=== PATIENT | male | born 1975 | race Caucasian/White ===

== ENCOUNTER → 2024-08-07 08:05 | Outpatient (REF) | payer OTHER, SELFPAY | LOC: HWRCS 08:05 | PROVIDERS: ATTENDING PHYSICIAN Internal Medicine Cardiovascular Disease; FAMILY PHYSICIAN Family Medicine | DX: I25.10 Atherosclerotic heart disease of native coronary artery without angina pectoris (principal) | CPT/HCPCS: 93306 ==

== ENCOUNTER → 2024-08-14 08:11 | Outpatient (REF) | payer OTHER, SELFPAY | LOC: RCS 08:11 | PROVIDERS: ATTENDING PHYSICIAN Internal Medicine Cardiovascular Disease; FAMILY PHYSICIAN Family Medicine | DX: I25.10 Atherosclerotic heart disease of native coronary artery without angina pectoris (principal) | CPT/HCPCS: 78452; 93017; A9500 ==

== ENCOUNTER 2024-08-17 12:17 | Day surgery (SDC) | payer OTHER, SELFPAY ==
[2024-08-17] VITALS (13 sets, daily range): BP systolic 107–167; BP diastolic 54–93; BMI 29.6
[2024-08-17] MEDS: NSS 305 ML IV (12:56)
[2024-08-17 14:51] LABS: ACT-LR - POC 308 Seconds (116-155)
[2024-08-17] MEDS: NSS 1000 IV (15:17)
--- NOTE | 2024-08-17 18:37 | ITS.CL.PN ---
Addendum entered and electronically signed by Sanchez Mayo MD 08/17/24 18:53:
Copy To: Dr. Andrzej Medina MD (sludge control attendant); Dr. Talib Alcaraz MD (surgeon); Dr. Saul Berg DO (PCP)
Original Note:
[facility] - Procedure Note
Procedure
Procedure Note:
CARDIAC CATHETERIZATION REPORT
Date of Procedure: 08/17/2024
Referring: Dr. Andrzej Medina MD
Indication: pre-op AVR
PROCEDURE(S)
1. left heart catheterization
2. coronary angiography
3. iFR RCA
ACCESS: 6F right radial artery (closure: radial band)
CATHETERS
1. 6F JR4
2. 6F JL4
3. 6F JR4 guide
MODERATE SEDATION: 30 minutes of moderate sedation was utilized. An independent biomedical repair technician was present to assist with and help manage the patient's level of consciousness and physiologic status.
HEMODYNAMIC DATA
LV 188/13 (EDP 20) mmHg
AO 176/84 (mean 117) mmHg
CORONARY ANGIOGRAPHY
Dominance: Right
LM: Large, normal
LAD: Large vessel giving rise to a large D1. There is mild nonobstructive disease.
LCx: Large vessel giving rise to small OM1 and continuing as a single large branching OM2. There is mild nonobstructive disease.
RCA: Large vessel giving rise to a large RPDA and moderate caliber RPL branch. There is a focal 50% stenosis in the mid RCA and mild diffuse disease in the RPL.
iFR of mid RCA
An Omni wire was flushed and zeroed outside the body and then advanced to the proximal RCA. The wire introducer was removed and the catheter flushed with saline, after which pressure of the wire and guide were normalized. The wire was advanced to
the mid RCA and iFR recorded at 1.0. On return to the proximal RCA, iFR appropriately remained 1.0.
RADIATION: dose 373 mGy; DAP 23 Gy*cm2; fluoroscopy time 6.2 min
CONCLUSIONS
1. Nonobstructive coronary artery disease as described in a right dominant system with iFR negative 50% mid RCA
2. Systemic hypertension, mildly elevated LVEDP, and no aortic stenosis
RECOMMENDATIONS
1. Proceed with workup for aortic valve replacement for severe mitral regurgitation
2. Aggressive secondary prevention of coronary artery disease
Copy to: Dr. Rubio Do MD, PhD (sludge control attendant); Dr. Saul Berg DO (PCP)
Signed: Sanchez Mayo MD, PhD
== END 2024-08-17 19:03 | disposition home or self-care (01) ==
LOC: CATH 12:17
PROVIDERS: ATTENDING PHYSICIAN Student in an Organized Health Care Education/Training Program; FAMILY PHYSICIAN Family Medicine
DX: I25.10 Atherosclerotic heart disease of native coronary artery without angina pectoris (principal); I10 Essential (primary) hypertension; I12.9 Hypertensive chronic kidney disease with stage 1 through stage 4 chronic kidney disease, or unspecified chronic kidney disease; N18.30 Chronic kidney disease, stage 3 unspecified; Z79.899 Other long term (current) drug therapy; Z79.82 Long term (current) use of aspirin
CPT/HCPCS: 93799; 99152; 99153; 85347; 93458; C1769; C1894; Q9967

== ENCOUNTER → 2024-08-24 08:49 | Outpatient (REF) | payer OTHER, SELFPAY | LOC: HWRAD 08:49 | PROVIDERS: ATTENDING PHYSICIAN Thoracic Surgery (Cardiothoracic Vascular Surgery); FAMILY PHYSICIAN Family Medicine | DX: I35.0 Nonrheumatic aortic (valve) stenosis (principal); I35.1 Nonrheumatic aortic (valve) insufficiency; Z01.810 Encounter for preprocedural cardiovascular examination | CPT/HCPCS: 71250; 74176 ==

== ENCOUNTER 2024-09-05 04:57 | Inpatient (IN) | payer OTHER, SELFPAY ==
[2024-08-22 08:21] VITALS: BMI 28.9
[2024-08-22 08:42] LABS: % Basophils 0.5 % (0-2); % Immature Granulocytes 0.4 % (0-0.5); % Lymphocytes 28.5 % (20.5-51.1); % Monocytes 10.1 % (1.7-9.3); % Neutrophils 57.5 % (42.2-75.2); Absolute Eosinophils 0.2 10^3/uL (0-0.7); Absolute Lymphocytes 2.3 10^3/uL (1.2-3.4); Absolute Monocytes 0.8 10^3/uL (0.1-0.6); Absolute Neutrophils 4.6 10^3/uL (1.4-6.5); Hematocrit 43.2 % (39.0-52.0); Hemoglobin 14.8 g/dL (13.0-18.0); Mean Corp Hgb Conc. 34.3 g/dL (33.0-37.0); Mean Corpuscular Hgb 30.8 pg (27.0-31.0); Mean Corpuscular Volume 89.8 fL (80.0-94.0); Mean Platelet Volume 10.9 fL (7.4-10.4); Nucleated Red Blood Cells % 0 % (-); Platelet Count 206 10^3/uL (130-400); Red Blood Cell Count 4.81 10^6/uL (4.70-6.10); Red Cell Dist. Width 13.2 % (11.5-14.5)
[2024-08-22 08:51] LABS: Urine Albumin Negative (Neg - Trace); Urine Bilirubin Negative (Negative); Urine Character Clear (Clear); Urine Color Yellow; Urine Glucose Negative (Negative); Urine Ketone Negative (Negative); Urine Leukocyte Negative (Negative); Urine Nitrite Negative (Negative); Urine Occult Blood Negative (Negative); Urine Specific Gravity 1.015 (<1.030); Urine Urobilinogen Negative (Neg - 1+)
[2024-08-22 08:52] LABS: INR 0.91; PT 12.8 Sec (11.4-14.6)
[2024-08-22 08:53] LABS: APTT 29.3 Sec (23.4-35.0)
[2024-08-22 09:05] LABS: ALT (SGPT) 37 U/L (0-50); AST (SGOT) 25 U/L (17-59); Albumin 4.9 g/dl (3.5-5.0); Alkaline Phosphatase 71 U/L (38-126); Blood Urea Nitrogen 25 mg/dl (9-20); Calcium 10.2 mg/dl (8.4-10.2); Carbon Dioxide 28 mmol/L (22-30); Chloride 105 mmol/L (98-107); Direct Bilirubin 0.1 mg/dl (0.0-0.4); Estimated Creatinine Clearance 65 ml/min; Glucose 134 mg/dl (70-99); Potassium 4.5 mmol/L (3.5-5.1); Sodium 142 mmol/L (135-145); Total Bilirubin 0.8 mg/dl (0.2-1.3); Total Protein 7.6 g/dl (6.3-8.2); eGFR 53.15
[2024-08-22 09:19] LABS: Glycohemoglobin (HgbA1c) 5.9 % (4.0-5.6)
--- NOTE | 2024-08-22 11:07 | CM ---
Chart reviewed. Met with the patient in PAT. Reviewed preoperative and postoperative instructions and restrictions, along with showering guidelines. Gave patient 2 soaps. Patient is agreeable to a home visit by CT Transitional RN. Patient is
independent of ADLS, lives with his mom and dad in a 2 STH, 2 TORRIE, 0 DME. 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 Plan is for the patient to go home with CT Transitional RN.
[2024-09-05] VITALS (16 sets, daily range): BP systolic 92–200; BP diastolic 58–80; BMI 28.9; BMI 29.1
[2024-09-05] MEDS: MAGNESIUM OXIDE 500 MG PO (05:13)
[2024-09-05] MEDS: BACTROBAN 2% OINTMENT 1 APPLIC NASAL ×2 (05:13→20:20)
[2024-09-05] MEDS: LOPRESSOR 25 MG PO (05:13)
[2024-09-05] MEDS: PROTONIX 40 MG PO (05:13)
[2024-09-05] MEDS: APRESOLINE 25 MG PO (05:24)
--- NOTE | 2024-09-05 05:30 | PTCARENOTE ---
Addendum entered by Kaylan Mohr RN 09/05/24 06:43:
25 mg P hydralazine given per orders for HTN.
Original Note:
pt admitted into 6. VS and weight obtained. pt confirms 2 showers at home and NPO since midnight. admission questions and med rec completed. clip prep and CHG wipes done. ABO drawn and sent. all questions answered.
--- NOTE | 2024-09-05 06:08 | W.CVOR.SURPR ---
CVOR Surgeon Immed Pre Op
-
I have examined this patient prior to performance of the scheduled procedure.
The patient's condition is unchanged from the time of the dictated/written History and
Physical and the patient is able to undergo the scheduled procedure.
Sternotomy AVR ([facility]) + OLLIE Clip
[2024-09-05 07:12] LABS: ACT+ - POC 107 Seconds (82-134)
[2024-09-05 07:59] LABS: Urine Albumin Negative (Neg - Trace); Urine Bilirubin Negative (Negative); Urine Character Clear (Clear); Urine Color Yellow; Urine Glucose Negative (Negative); Urine Ketone Negative (Negative); Urine Leukocyte Negative (Negative); Urine Nitrite Negative (Negative); Urine Occult Blood Negative (Negative); Urine Specific Gravity 1.015 (<1.030); Urine Urobilinogen Negative (Neg - 1+)
[2024-09-05 08:06] LABS: ACT+ - POC 653 Seconds (82-134)
[2024-09-05 08:25] LABS: ACT+ - POC 830 Seconds (82-134)
[2024-09-05 08:30] LABS: B.E. - POC 0.5 mmol/L; Glucose - POC 106 mg/dl (70-99); HCO3 - POC 25 mmol/L (21-28); Hematocrit - POC 34 % PCV (42-52); Hemodilution- POC No; Hemoglobin Calculated - POC 11.6; Lactate - POC < 0.30 mmol/L (0.36-0.75); PCO2 - POC 40 mmHg (35-48); PO2 - POC 495 mmHg (83-108); POC Comment PRE; Sodium - POC 140 mmol/L (136-145); Specimen Type - POC Arterial; pH - POC 7.41 (7.35-7.45)
[2024-09-05 08:43] LABS: ACT+ - POC 672 Seconds (82-134)
[2024-09-05 09:06] LABS: ACT+ - POC 671 Seconds (82-134)
--- NOTE | 2024-09-05 09:07 | CM ---
Patient in OR today for planned MVR.
Reviewed initial assessment. Pt. resides w/ parents in a 2 STH w/ 2 TORRIE. Functionally, patient is indep. w/ ADLs, mobility.
Anticipated DC plan is for home w/ CT Transitional Care RN.
CM to follow.
[2024-09-05 09:15] LABS: B.E. - POC 0.4 mmol/L; Glucose - POC 129 mg/dl (70-99); HCO3 - POC 25 mmol/L (21-28); Hematocrit - POC 35 % PCV (42-52); Hemodilution- POC Yes; Hemoglobin Calculated - POC 11.8; Ionized Calcium - POC 1.14 mmol/L (1.15-1.33); Lactate - POC 0.42 mmol/L (0.36-0.75); O2 Saturation %Calculated-POC 99.9 % (94-98); PCO2 - POC 38 mmHg (35-48); PO2 - POC 349 mmHg (83-108); POC Comment WARM; Sodium - POC 142 mmol/L (136-145); Specimen Type - POC Arterial; pH - POC 7.43 (7.35-7.45)
[2024-09-05] MEDS: ANCEF 10 IV ×2 (09:17)
[2024-09-05 09:21] LABS: ACT+ - POC 558 Seconds (82-134)
[2024-09-05 09:31] LABS: Glucose - POC 104 mg/dl (70-99); HCO3 - POC 24 mmol/L (21-28); Hematocrit - POC 33 % PCV (42-52); Hemodilution- POC Yes; Hemoglobin Calculated - POC 11.2; Ionized Calcium - POC 1.41 mmol/L (1.15-1.33); Lactate - POC 1.45 mmol/L (0.36-0.75); PCO2 - POC 33 mmHg (35-48); PO2 - POC 407 mmHg (83-108); POC Comment WARM; Potassium - POC 5.3 mmol/L (3.5-5.1); Sodium - POC 139 mmol/L (136-145); Specimen Type - POC Arterial; pH - POC 7.46 (7.35-7.45)
[2024-09-05 09:35] LABS: ACT+ - POC 120 Seconds (82-134)
--- NOTE | 2024-09-05 10:08 | W.PN.CT.SURG ---
CT Surgery Operative Note
-
CARDIAC SURGERY OPERATIVE REPORT
Preoperative Diagnosis: Severe aortic valve insufficiency with moderate aortic valve stenosis, dilated LV
Postoperative Diagnosis: Same
Procedure(s) Performed:
1. Standard sternotomy with aortic manage cannulation
2. Surgical aortic valve replacement [25 mm mechanical aortic valve]
3. Left atrial appendage exclusion [35 mm device]
4. Placement ventricular pacing wire
5. Transesophageal echocardiography
6. Sternal Plating
Date of Surgery: 09/05/2024
Comorbidities:
1. Severe aortic valve insufficiency with moderate degree of stenosis
2. Nonischemic dilated cardiomyopathy, LVEF of 45% and dilated left ventricle (former EF of 15%, possible viral related?)
3. CKD stage III
4. Hepatitis C
5. ADHD
6. Hypertension
7. Nonobstructive CAD
8. Mild tricuspid valve insufficiency
9. Mild aortic ectasia
Attending Surgeon: Talib Alcaraz MD, MS
Assistants: Talib Serrano PA-C (present and necessary to geriatric assistant, retraction, suction, exposure, suture management, and wound closure under my direction)
Anesthesiology: Gene Mao MD and Kervin Chong CRNA
Scrub and Circulating RNs: Jeff Stallworth RN, Libby Adames RN
Bar Pointer: Missy Mendoza CCP
Anesthesia: GETA
EBL: per perfusion records
Products: None
CPB Time: 73 minutes
Aortic Cross Clamp Time: 56 minutes
Indication(s) for Procedures: This is a 48-year-old male with mixed aortic valve pathology including severe insufficiency and moderate stenosis, he has been followed for several years and recently had a slightly depressed left ventricular function
with progressive dilation of his left ventricle. Given the findings, he was sent for surgical evaluation. With his young age, we discussed surgical valve replacement with either mechanical biological valve, ultimately shared decision making was to
pursue a mechanical valve.
Aortic Valve Description: Bicuspid valve, type II there was fusion of the left right coronary cusp as well as partial fusion of the left-non commissure. His left right coronary arteries within normal anatomic positions and in good height. Most the
calcium is towards the body of the leaflet with some infiltration of calcium towards the left right commissure.
Findings: His left ventricular ejection fraction preoperative was mildly depressed at 45 to 50%, there is no significant regional wall motion abnormalities. Following surgery his EF essentially was normalized and LV appeared to be less dilated. He
did have an element of left ventricular hypertrophy. There were no new regional wall motion abnormalities. His left atrial appendage was verified to be free of any thrombus or debris preoperatively and found to be totally occlusive
postoperatively. His aortic valve was resected and then replaced with a total of 15 nonpledgeted 2-0 Ethibond sutures placed from LVOT through annulus through sewing cuff of the mechanical prosthesis. This was secured with a core knot device.
Inspection of the leaflets demonstrated unobstructed movement. The valve was oriented perpendicular to the aorto mitral curtain. After coming off cardiopulmonary bypass, there was no paravalvular leaks aside from the negative washing jets inherent
with this valve. There was normal leaflet excursion of both leaflets on mechanical prosthesis and the mean gradient was 8 mmHg. Cardiac index had improved from 1.3 initially before surgery to 2.0 without inotropic support. He regained a sinus
rhythm and did receive 2 boluses of amiodarone as he was tachycardic coming off cardiopulmonary bypass. No blood products were given.
Specimen(s): Aortic valve leaflets.
Prosthesis:
1. 25 mm On-X mechanical aortic valve prosthesis, serial number [id number],
2. 35mm left atrial appendage clip, serial #[id number],
3. 1 squared gold plate and 1 6-hole circular plate with 60 mm screws in all
Description of Procedure: The patient was taken to the operating room. Their identity and procedure to be performed were verified and they were positioned supine on the operating table. Induction via general anesthesia with endotracheal intubation
was performed and central venous access and arterial monitoring were inserted. A preoperative transesophageal echocardiogram was performed to assess cardiac function and valvular function. The patient was then prepped and draped from chin to feet in
a sterile fashion. A preoperative time-out was performed with all members of the team present. A midline chest incision was performed along with median sternotomy. The innominate vein was isolated. Full heparinization was given (a total of 50,000
units). We created a pericardial well. The aortic cannulation site was chosen where it was soft, pliable, and free of calcium. Cannulation was performed with an arterial cannula in the ascending aorta and a triple-stage venous cannula through the
right atrial appendage. The arterial cannula line had an appropriate bounce and correlating pressures with test dosing. The ACT was confirmed to be over 400 and retrograde autologous priming was performed before commencing cardiopulmonary bypass. A
retrograde coronary sinus catheter was placed via the right atrium into the coronary sinus under manual and echo guidance. The pulmonary artery was away from the aorta to facilitate a clamp site and aortotomy. A left ventricular vent was
placed at the right superior pulmonary vein and secured. The aortic cross-clamp was placed after decreasing the flow on the bypass and mean arterial pressure. The aorta was then opened transversely and stay sutures were placed. A total of 1.2L
initial combination dose of retrograde and direct ostial antegrade Del-Nido cardioplegia solution was given and planned for re-dosing every 75 minutes as necessary. Cardioplegia was visualized emanating from the left main. There was
electro-mechanical arrest of the heart at 600 cc of cardioplegia, essentially once we started giving down the right coronary ostia. Cold slush was placed into a sponge and topically on the RV while we systemically cooled to 34 degrees centigrade.
Once the heart was fully arrested it was rotated medially and the left atrial appendage was clipped to a 35 mm device.
Carbon dioxide was used to flood the field. The location of both left and right coronary vessels were visualized in the root.The leaflets were excised and sent for pathological assessment. The annulus was debrided of any calcium being mindful of
the annulus and membranous septum. The root and left ventricular outflow tract were thoroughly irrigated to remove any debris. A total of 15 non-pledgeted 2-0 ethibond inverted annular sutures were placed [id number] circumferentially. These were
brought through the sewing cuff of the prosthetic valve which as then parachuted into place. The left and right coronary ostia were visualized and were unobstructed by the valve. A Cor-Knot device was used to secure the annular sutures. The valve
was inspected and was well seated. The 2 mechanical leaflets have normal excursion and was oriented perpendicular to the aorto mitral curtain. The aortotomy was approximated with 4-0 prolene in two layers. De-airing maneuvers were performed and
temporary bipolar ventricular pacing wires were placed on the base of the right ventricle. The patient was placed in a Trendelenburg position and flows on bypass were lowered. A temporary aortic root vent was placed for de-airing. The aortic cross
clamp was removed and flows were slowly brought back up. The aortotomy appeared hemostatic. Transesophageal echocardiography revealed no paravalvular leak and appropriate prosthetic function. Once de-airing was satisfactory, the left ventricular
and root vents were removed. After verifying acceptable parameters, we initiated weaning from cardiopulmonary bypass. Once we were off cardiopulmonary bypass, the venous cannula was clamped and removed. A test dose of protamine was administered and
the patient was monitored for any adverse reaction before resuming protamine. Once half of the protamine dose was delivered, pump suckers were turned off and the systolic blood pressure was lowered for aortic decannulation. The aortic cannula was
removed and pursestrings were tied down. All cannulation sites were oversewn with a 4-0 prolene. The aortotomy suture line was inspected and hemostasis was confirmed. Mediastinal hemostasis was obtained. Two 24Fr Ezra drains were placed within the
pericardium. The sternum was approximated with 4#7 single and 3 #8 double stainless steel wires. Given the size of the patient, additional plates were placed at the manubrium and manubrial sternal junction. Fascia was approximated with #1 vicryl
suture. The subcutaneous, dermis and epidermis were closed in layers in a running fashion. The skin wound was cleansed and dressed.
All instrument, sponge, and needle counts were confirmed to be correct x 2 at the end of the operation. The patient was transferred to the cardiac intensive care unit in critical but stable condition.
I, Dr. Talib Alcaraz, was present, scrubbed for, and performed all critical elements of this procedure.
Talib Alcaraz MD, MS
Cardiothoracic Surgeon
[facility]
This operative dictation was created using the [employer] dictation system. Please excuse any grammatical, typographical, or 'sound alike' errors
[2024-09-05 10:16] LABS: B.E. - POC 3.5 mmol/L; Glucose - POC 150 mg/dl (70-99); HCO3 - POC 27 mmol/L (21-28); Hematocrit - POC 34 % PCV (42-52); Hemodilution- POC Yes; Hemoglobin Calculated - POC 11.7; Ionized Calcium - POC 1.15 mmol/L (1.15-1.33); Lactate - POC < 0.30 mmol/L (0.36-0.75); PCO2 - POC 38 mmHg (35-48); PO2 - POC 338 mmHg (83-108); POC Comment CPB; Potassium - POC 5.8 mmol/L (3.5-5.1); Sodium - POC 138 mmol/L (136-145); Specimen Type - POC Arterial; pH - POC 7.47 (7.35-7.45)
[2024-09-05 10:29] LABS: Glucose - Point of Care 141 mg/dl (70-99)
--- NOTE | 2024-09-05 10:33 | W.PN.UPDATE ---
Update Note
Progress Note Update
Crystalloid:� 2000 mL
U.O.:� 650 mL
UF:� 2000 mL
Blood:� none
Wires:� V-wires - off
Inotropes:� none
Gtts: Cardene (3)�
Sedatives:� Precedex (0.6)
�
NEURO: sedated on Precedex gtt, pupils +2mm B/L
RESP: #8OT @ 23cm> 600/40%/14/5. Lungs clear B/L. 2 mediastinal (5cc on arrival) chest tubes to -20cm suction, no air leak/crepitus. Sanguineous drainage.
CV: RRR +S1, S2, no S3, no�rub, no murmur, valvular click present. Dermabond to median sternotomy. RIJ w/[place] locked @ 45cm. PA ; CVP 10; C.O 4.70/CI 2.10
ABD: round, soft, no BS
EXT: no edema, +2/4 DP pulses B/L, L radial A-line intact
: Kruger with clear yellow urine
�
A/P: POD #0 s/p AVR 25mm On-X mechanical valve
REY: EF�55-60%, mildly dilated LV, moderate LVH
- wean and extubate
- will need instruction regarding antibiotic prophylaxis for dental and invasive procedures
- Goal SBP 90-110 mmHg
- Tentative plan to begin Coumadin & dc epicardial v-wire tomorrow, POD 1 - 09/06/24
- Tentative plan to initiate Heparin gtt POD 2 - 09/07/24
- Discontinue insulin infusion 24-hours post anesthesia end-time, Hgb A1C 5.9%
- Post-op H/H 14.3, Plt 165, monitor labs
�
# Hyperlipidemia
- resume�home regiment of rosuvastatin 20 mg daily
# Nonischemic, Dilated Cardiomyopathy
- LVEF 55-60% with dilated LV
- Resume GDMT as able
# Hypertension
- Pre-operative HTN presenting to CVOR with MAP 100 mmHg
- On Coreg, Isosorbide, Hydralazine, Spironolactone, pre-operatively
#CKD III
- Pre-op Cr 1.5-1.9, BUN 21-25, GFR 51.3
- Post-op Cr 1.3, BUN 15
- Continue to monitor labs & UO
[2024-09-05 10:37] LABS: Mixed Venous O2 Saturation 77.3 %
[2024-09-05 10:38] LABS: Hematocrit 40.9 % (39.0-52.0); Hemoglobin 14.3 g/dL (13.0-18.0); Platelet Count 165 10^3/uL (130-400)
[2024-09-05 10:39] LABS: B.E. -2.4 mmol/L; HCO3 23.2 mmol/L (21-28); Ionized Calcium 1.29 mMOL/L (1.15-1.33); PCO2 42 mmHg (35-48); PO2 88 mmHg (83-108); Potassium 4.7 mMOL/L (3.5-5.1); Sodium 135 mMOL/L (136-145); pH 7.35 (7.35-7.45)
[2024-09-05 10:44] LABS: B.E. - POC -1.8 mmol/L; Glucose - POC 93 mg/dl (70-99); HCO3 - POC 23 mmol/L (21-28); Hematocrit - POC 34 % PCV (42-52); Hemodilution- POC Yes; Hemoglobin Calculated - POC 11.4; Lactate - POC 1.18 mmol/L (0.36-0.75); PCO2 - POC 37 mmHg (35-48); PO2 - POC 424 mmHg (83-108); POC Comment POST; Potassium - POC 4.2 mmol/L (3.5-5.1); Sodium - POC 141 mmol/L (136-145); Specimen Type - POC Arterial
[2024-09-05 10:48] LABS: INR 1.28; PT 16.6 Sec (11.4-14.6)
[2024-09-05 10:49] LABS: APTT 31.4 Sec (23.4-35.0)
--- NOTE | 2024-09-05 10:53 | PTCARENOTE ---
Pt arrived from CVOR to CVICU at 1020. Pt is intubated and sedated. Pt SB with HR 59, BP 104/56 MAP 70, PA 30/15, CVP 10, CO 4.70, CI 2.10, SVR 1038. Temp 96.1, Noble Hugger in place. Epicardial V wire in place, not connected to pacing box. Pacing
box set to 70/10/2. Pulse oximetry 95%, Vent set to SIMV FiO2 40%, Rate 14, TV 600, PEEP 5, Pressure support 5. Oral care completed. Mediastinal chest tube x2 in place to -20 suction, no sign of air leak or crepitus. Bowel sounds hypoactive. Kruger
catheter in place draining yellow urine, Kruger care competed. Midsternal incision approximated with surgical adhesive. Right IJ cordis in place, swan at 45cm. Left radial [place] intact. Pt currently on Insulin, Precedex, and Cardene. Post-op EKG and
X-ray obtained. Labs collected and reviewed.
[2024-09-05 11:03] LABS: Blood Urea Nitrogen 15 mg/dl (9-20); Estimated Creatinine Clearance 79 ml/min; Glucose 134 mg/dl (70-99); Magnesium 2.6 mg/dl (1.6-2.3)
[2024-09-05 11:12] LABS: Glucose - Point of Care 144 mg/dl (70-99)
[2024-09-05] MEDS: NSS 500 IV (11:45)
--- NOTE | 2024-09-05 11:53 | CON.CAR ---
Addendum entered and electronically signed by Angel Guerrero MD 09/05/24 13:52:
I saw and examined the patient.
The APPLICATION SYSTEMS ADMINISTRATOR's note was reviewed and I agree with the note.
Comment: Cont routine post-op care
BP goals per CTS
Original Note:
Consultation
Consultation Request
Date/Time Consultation Requested: 09-05-24
Date/Time Consultation Performed: 09-05-24
Requesting Provider: Bri Roach
Performing Provider: Dr. Angel Diaz
Reason for Consultation: S/p AVR (mechanical)
Medical History
-
Chief Complaint: AVR (mechanical)
History of Present Illness:
Iker Piedra, 48-year-old male with aortic valve stenosis and insufficiency, dilated cardiomyopathy LVEF 55% (former EF of 15%, possible viral related?), HTN, HLD, CAD CKD IIIa and chronic hepatitis, is post-op from an elective surgical aortic valve
replacement (mechanical) and left atrial appendage exclusion. He an uncomplicated operative course and had an intraoperative REY with no changes.
Past Medical History
Past Medical History: Other (aortic valve stenosis and insufficiency, dilated cardiomyopathy LVEF 55%, HTN, HLD, CAD CKD IIIa,chronic hepatitis, gerd, ADHD)
Past Surgical History: Cardiac (cath) and Orthopedic
Social History
Tobacco: Former Smoker
Alcohol: Occasional
Drug: None
Personal: Single
Employment: Employed
Allergies / Home Medications
Allergy/AdvReac Type Severity Reaction Status Date / Time
No Known Allergies Allergy Verified 08/21/24 14:02
�Medication �Instructions �Recorded �Confirmed �Type
acetaminophen 325 mg tablet 650 mg (2 x 325 mg) PO Q4HPRN PRN 07/08/19 09/05/24 Rx
mild pain
carvedilol 25 mg tablet (Coreg) 25 mg PO BID ##120 07/08/19 09/05/24 Rx
furosemide 40 mg tablet 40 mg PO DAILY #60 tabs 07/08/19 09/05/24 Rx
hydralazine 25 mg tablet 25 mg PO BID #120 tabs 07/08/19 09/05/24 Rx
isosorbide mononitrate 30 mg 30 mg PO DAILY #60 tabs 07/08/19 09/05/24 Rx
tablet,extended release 24 hr
spironolactone 25 mg tablet 12.5 mg (1/2 x 25 mg) PO DAILY ##60 07/08/19 09/05/24 Rx
pantoprazole 40 mg tablet,delayed 40 mg PO DAILY 08/17/24 09/05/24 History
release (Protonix)
rosuvastatin 20 mg tablet 20 mg PO DAILY #90 tabs 08/17/24 09/05/24 Rx
aspirin 81 mg tablet,delayed 81 mg PO HS 08/21/24 09/05/24 History
release
cholecalciferol (vitamin D3) 25 25 mcg PO DAILY 08/21/24 09/05/24 History
mcg (1,000 unit) tablet (Vitamin
D3)
Review of Systems
-
Unable to obtain full review of systems at this time due to: Patient Intubation
Physical Exam
Vital Signs
Temp Pulse Resp BP Pulse Ox
96.4 F L 59 14 174/77 95
09/05/24 11:00 09/05/24 11:00 09/05/24 11:00 09/05/24 06:11 09/05/24 11:37
Lab Results
09/05/24 10:28
Physical Exam
General: Intubated
HEENT: Normocephalic, Anicteric, Moist Mucous Membranes and Atraumatic
Respiratory: Non Labored Respirations; Negative Accessory Resp Muscle Use
Cardiac: S1/S2 and Regular Rhythm; Negative Murmur
GI: Soft
Musculoskeletal: No Clubbing and No Cyanosis
Neuro: Sedated
Impression / Plan
-
Severe aortic regurgitation and stenosis, status-post AVR (mechanical) today
- SBP goal of 90-110 per CTS.
- Titrate nicardipine as needed.
- Wean dexmedetomidine per protocol.
Dilated cardiomyopathy LVEF 55-60%
- Possibly secondary to long-standing aortic valve disease.
- BP goal of normotension.
Primary hypertension
Hyperlipidemia
Coronary artery disease
- Continue home medications as tolerated.
Chronic kidney disease, IIIa
Chronic hepatitis
GERD
ADHD
[2024-09-05 12:03] LABS: Glucose - Point of Care 132 mg/dl (70-99)
[2024-09-05 12:56] LABS: Glucose - Point of Care 141 mg/dl (70-99)
[2024-09-05] MEDS: TYLENOL PO (13:27)
--- NOTE | 2024-09-05 13:38 | CON.INTV ---
Consultation
Consultation Request
Date/Time Consultation Requested: 09/05/2024
Date/Time Consultation Performed: 09/05/2024
Requesting Provider: Dr. Alcaraz
Performing Provider: Dr. Murtaza Greenberg
Reason for Consultation: Status post AVR-postoperative manage
Medical History
-
History of Present Illness:
48-year-old man with history of moderate aortic valve stenosis with severe aortic insufficiency. History of dilated cardiomyopathy due to viral infection with ejection fraction 15% that has recovered to 55%. Chronic kidney disease, chronic
hepatitis C. Evaluated by Dr. Alcaraz in the outpatient setting and given progression of disease and symptoms he was deemed candidate for surgery.
Underwent sternotomy with surgical aortic valve replacement on 09/05/2024 without complications.
Patient currently in the critical care unit. Intubated on mechanical ventilation.
Records reviewed.
Chest tube in place without significant drainage.
Past Medical History
Past Medical History: Other (See assessment and)
Family History
Family History: Unable to Obtain
Allergies / Home Medications
Allergies
Allergy/AdvReac Type Severity Reaction Status Date / Time
No Known Allergies Allergy Verified 08/21/24 14:02
Home Medications
�Medication �Instructions �Recorded �Confirmed �Last Taken �Type
acetaminophen 325 mg tablet 650 mg (2 x 325 mg) PO Q4HPRN PRN 07/08/19 09/05/24 09/03/24 Rx
mild pain
carvedilol 25 mg tablet (Coreg) 25 mg PO BID ##120 07/08/19 09/05/24 09/04/24 21:30 Rx
furosemide 40 mg tablet 40 mg PO DAILY #60 tabs 07/08/19 09/05/24 09/04/24 08:30 Rx
hydralazine 25 mg tablet 25 mg PO BID #120 tabs 07/08/19 09/05/24 09/04/24 21:30 Rx
isosorbide mononitrate 30 mg 30 mg PO DAILY #60 tabs 07/08/19 09/05/24 09/04/24 08:30 Rx
tablet,extended release 24 hr
spironolactone 25 mg tablet 12.5 mg (1/2 x 25 mg) PO DAILY ##60 07/08/19 09/05/24 09/04/24 08:30 Rx
pantoprazole 40 mg tablet,delayed 40 mg PO DAILY 08/17/24 09/05/24 09/04/24 08:30 History
release (Protonix)
rosuvastatin 20 mg tablet 20 mg PO DAILY #90 tabs 08/17/24 09/05/24 09/04/24 08:30 Rx
aspirin 81 mg tablet,delayed 81 mg PO HS 08/21/24 09/05/24 09/04/24 21:30 History
release
cholecalciferol (vitamin D3) 25 25 mcg PO DAILY 08/21/24 09/05/24 09/04/24 08:30 History
mcg (1,000 unit) tablet (Vitamin
D3)
Review of Systems
-
Unable to Obtain full review of systems at this time due to: Patient Intubation
Vitals / Labs / Diagnostic Testing
Vital Signs
Temp Pulse Resp BP Pulse Ox
98.1 F 61 11 92/58 95
09/05/24 13:00 09/05/24 13:00 09/05/24 13:00 09/05/24 13:00 09/05/24 13:00
Lab Data
09/05/24 10:28
Laboratory Results
09/05/24
10:28
PT 16.6 H
INR 1.28
APTT 31.4
pH 7.35
pCO2 42
pO2 88
HCO3 23.2
O2 Delivery Level
Diagnostic Testing:
Physical Exam
-
HEENT: Normocephalic
Cardiovascular: S1/S2
Respiratory: Non-Labored Respirations and Other (Chest tube in place without air leak or excessive drainage)
GI: Soft and Non Distended
Neurology: Other (Sedated on mechanical ventilation)
General: Comfortable
Assessment
-
48-year-old man with past medical history noted admitted to the hospital for aortic valve replacement. Surgery underwent on 09/05/[address] Alcaraz. We were consulted post surgery for postoperative management.
Status postsurgical aortic valve replacement Dr. Alcaraz 09/05/2024
REY: EF�55-60%, mildly dilated LV, moderate LVH
Postoperative mechanical ventilation
Postoperative anemia next
Conditions present prior admission:
Severe aortic insufficiency and moderate aortic stenosis
Dilated Myopathy? Postviral-current LVEF 45% and dilated left ventricle.
Chronic kidney disease stage III
Hepatitis C
ADHD
Hypertension
Nonobstructive coronary artery disease
Assessment and plan:
His doing well postop-currently on mechanical ventilation and appears comfortable.
ABG reviewed:
Continue SIMV mode with no change.
Spontaneous breathing trial per protocol once sedation wears off.
Anemia noted-no evidence of acute bleeding
Follow H&H serially
Hemodynamics -acceptable on low-dose Levophed and dobutamine.
Hopefully can be weaned off.
Eventual to start Coumadin.
Chest tube with no excessive drainage-no air leak.
Chest x-ray reviewed: With no pneumothorax or fluid collections.
Remain nothing by mouth
Head of the bed elevation
Glycemic control per protocol
DVT prophylaxis when safe from the surgical perspective.
Critical care statement: A total of 32 minutes of critical care time was provided for this patient today. This includes management of unstable vital signs, evaluation of the patient at bedside, reviewing the patient's pertinent medical records
including ventilator settings, arterial blood gases, radiographs, microbiology, laboratory evaluations and discussion with primary team, critical care nursing, and respiratory therapy.
[2024-09-05 13:47] LABS: B.E. - POC -2.4 mmol/L; Blood Urea Nitrogen - POC 17 mg/dl (3-120); Chloride - POC 108 mmol/L (96-111); Creatinine - POC 1.45 mg/dl (0.3-1.0); Glucose - POC 157 mg/dl (70-99); HCO3 - POC 24 mmol/L (21-28); Hematocrit - POC 42 % PCV (42-52); Hemodilution- POC Yes; Hemoglobin Calculated - POC 14.4; Ionized Calcium - POC 1.33 mmol/L (1.15-1.33); Lactate - POC 1.53 mmol/L (0.36-0.75); O2 Saturation %Calculated-POC 95.8 % (94-98); PCO2 - POC 47 mmHg (35-48); PO2 - POC 88 mmHg (83-108); Potassium - POC 4.4 mmol/L (3.5-5.1); Sodium - POC 141 mmol/L (136-145); Specimen Type - POC Arterial; pH - POC 7.32 (7.35-7.45)
--- NOTE | 2024-09-05 14:05 | PTCARENOTE ---
CPAP trial initiated at 1300. Labs collected, CT FARHEEN Bri to bedside to run EPOC. Order placed to extubate. Pt extubated to 6L nasal cannula at 1355. Pt able to state name and . Achieved 1500 with IS. Repeat H&H collected and reviewed.
--- NOTE | 2024-09-05 14:06 | RESPNOTE ---
Patient extubated without incident to 6 liter NC. IS done 2000mL
[2024-09-05 14:07] LABS: Glucose - Point of Care 135 mg/dl (70-99)
[2024-09-05 14:22] LABS: Hematocrit 43.2 % (39.0-52.0); Hemoglobin 14.9 g/dL (13.0-18.0); Platelet Count 216 10^3/uL (130-400)
[2024-09-05 15:19] LABS: Glucose - Point of Care 138 mg/dl (70-99)
[2024-09-05] MEDS: DILAUDID 0.25 MG IV ×2 (15:43→20:21)
[2024-09-05] MEDS: NEURONTIN 100 MG PO ×2 (16:15→22:58)
[2024-09-05] MEDS: PACERONE 200 MG PO ×2 (16:15→22:58)
[2024-09-05] MEDS: LOW STRENGTH ASPIRIN 81 MG PO (16:15)
[2024-09-05] MEDS: ANCEF 5 IV (16:17)
[2024-09-05 18:13] LABS: Glucose - Point of Care 114 mg/dl (70-99)
[2024-09-05] MEDS: ROXICODONE 5 MG PO (18:27)
[2024-09-05] MEDS: CARDENE 200 IV (18:34)
--- NOTE | 2024-09-05 18:39 | PTCARENOTE ---
Pt with continued complaints of pain, PRN Roxicodone administered. Pt remains SR with HR 60's. BP 109/64 MAP 78. PA 34/22, CVP 16, CO 4.91, CI 2.19, SVR 961. Pulse oximetry 93% on 2L nasal cannula. Mediastinal chest tubes in place, no sign of air
leak ore crepitus. Remains on Insulin and Cardene.
[2024-09-05] MEDS: ZOFRAN 4 MG IV (20:03)
[2024-09-05 20:12] LABS: Glucose - Point of Care 119 mg/dl (70-99)
[2024-09-05] MEDS: SENOKOT-S PO (20:21)
[2024-09-05 21:04] LABS: Glucose - Point of Care 118 mg/dl (70-99)
[2024-09-05 21:59] LABS: Glucose - Point of Care 110 mg/dl (70-99)
[2024-09-05] MEDS: TYLENOL 1000 MG PO (22:57)
[2024-09-05 23:01] LABS: Glucose - Point of Care 115 mg/dl (70-99)
[2024-09-06] VITALS (23 sets, daily range): BP systolic 96–144; BP diastolic 51–77; PULSE 68; O2SAT 90; BMI 30.2
--- NOTE | 2024-09-06 | PTCARENOTE ---
assumed care of pt from previous RN. pt A&Ox4, bedrest s/p CVOR. R IJ cordis w/ swan floated to 45cm. L radial a-line. all lines leveled, zeroed, flushed. SR on tele-monitor. temp epicardial v-wires w/ back up settings VVI 70/10/2. POX 93% on [address] x2 (mediastinal x2) to -20cm wall suction, draining sanguineous drainage. abd s/n, round, obese, +BS. emerson catheter draining clear, yellow urine. all surgical sites stable, CDI. PIV intact. see worklist for complete nursing assessment,
interventions, gtt titrations, VS, and I&OS.
[2024-09-06 00:13] LABS: Glucose - Point of Care 124 mg/dl (70-99)
[2024-09-06] MEDS: ANCEF 5 IV ×2 (00:19→10:15)
[2024-09-06] MEDS: CARDENE 200 IV ×2 (00:19→05:28)
[2024-09-06] MEDS: LR 250 ML IV (00:28)
--- NOTE | 2024-09-06 00:30 | PTCARENOTE ---
assessment remains unchanged. U/O <0.5ml/kg/h. CT PA aware. 250 LR bolus given for decreased U/O. CT drainage WNL.
[2024-09-06] MEDS: ROXICODONE 5 MG PO ×4 (01:04→20:33)
[2024-09-06] MEDS: APRESOLINE 10 MG IV (01:40)
[2024-09-06 01:48] LABS: Glucose - Point of Care 102 mg/dl (70-99)
[2024-09-06] MEDS: DILAUDID 0.25 MG IV (03:15)
[2024-09-06 04:18] LABS: Glucose - Point of Care 150 mg/dl (70-99)
--- NOTE | 2024-09-06 04:20 | PTCARENOTE ---
no acute changes. CT drainage WNL. U/O <0.5ml/kg/h. CT PA aware. AM labs collected and sent. EKG completed.
[2024-09-06 04:29] LABS: Hematocrit 37.2 % (39.0-52.0); Hemoglobin 12.6 g/dL (13.0-18.0); Mean Corp Hgb Conc. 33.9 g/dL (33.0-37.0); Mean Corpuscular Hgb 30.4 pg (27.0-31.0); Mean Corpuscular Volume 89.9 fL (80.0-94.0); Mean Platelet Volume 10.6 fL (7.4-10.4); Platelet Count 203 10^3/uL (130-400); Red Blood Cell Count 4.14 10^6/uL (4.70-6.10); Red Cell Dist. Width 13.3 % (11.5-14.5); White Blood Cell Count 21.3 10^3/uL (4.8-10.8)
[2024-09-06 04:37] LABS: INR 1.17; PT 15.4 Sec (11.4-14.6)
[2024-09-06 04:59] LABS: Blood Urea Nitrogen 31 mg/dl (9-20); Calcium 8.9 mg/dl (8.4-10.2); Carbon Dioxide 19 mmol/L (22-30); Chloride 113 mmol/L (98-107); Estimated Creatinine Clearance 52 ml/min; Glucose 153 mg/dl (70-99); Magnesium 2.2 mg/dl (1.6-2.3); Potassium 5.8 mmol/L (3.5-5.1); Sodium 138 mmol/L (135-145); eGFR 40.66
[2024-09-06 05:27] LABS: B.E. -4.9 mmol/L; HCO3 20.6 mmol/L (21-28); Ionized Calcium 1.19 mMOL/L (1.15-1.33); O2 Saturation % 95.7 % (94-98); PCO2 39 mmHg (35-48); PO2 73 mmHg (83-108); Potassium 4.9 mMOL/L (3.5-5.1); pH 7.33 (7.35-7.45)
[2024-09-06 05:33] LABS: O2 Therapy 6L
[2024-09-06 05:59] LABS: Glucose - Point of Care 140 mg/dl (70-99)
[2024-09-06] MEDS: SODIUM BICARBONATE 50 MEQ IV (06:01)
[2024-09-06] MEDS: ZOFRAN 4 MG IV (06:01)
[2024-09-06] MEDS: TYLENOL 1000 MG PO ×3 (06:34→21:29)
[2024-09-06] MEDS: LOPRESSOR 12.5 MG PO ×2 (06:34→13:00)
--- NOTE | 2024-09-06 07:37 | W.PN.CT ---
Today's Communication / Plan
-
-pod #1
-hypertensive overnight, requiring high doses of iv Nitro and Cardene. Gave iv Hydralazine overnight and po Lopressor early this am
-CI 2.83, CO 6.35. Drips: Cardene 7.5, Nitro 110, Insulin
-CT outputs: 165/370 in 12/24 hrs
-follow Cr - 2.0 today (1.3 on 09/05 and 1.6 preop)
-d/c swan
-maintain Kruger for critical I/O
-consider switching to his home dose Coreg 25 bid and Hydralazine for HTN
-encourage IS, OOB
Assessment / Plan
-
- Severe aortic valve insufficiency with moderate aortic valve stenosis, dilated LV- s/p Surgical aortic valve replacement [25 mm mechanical aortic valve]; Left atrial appendage exclusion [35 mm device] by Dr. Alcaraz on 09/05/24, pod #1
- Intraop REY: LVEF preoperative was mildly depressed at 45 to 50%, there is no significant regional wall motion abnormalities. Following surgery his EF essentially was normalized and LV appeared to be less dilated. He did have an element of left
ventricular hypertrophy. There were no new regional wall motion abnormalities. His left atrial appendage was verified to be free of any thrombus or debris preoperatively and found to be totally occlusive postoperatively.
- Nonischemic dilated cardiomyopathy, LVEF of 45% and dilated left ventricle (former EF of 15%, possible viral related?)
- CKD stage III (Cr 1.6 preop)
- Hepatitis C
- ADHD
- Hypertension
- Nonobstructive CAD
- Mild tricuspid valve insufficiency
- Mild aortic ectasia
- Acute postop blood loss anemia
- Acute postop atelectasis
- Acute postop hypovolemia with subsequent hypervolemia
- Suspected acute postop pericarditis/+ rub
- ARMINDA on CKD
Discussed patient care with: Nursing and Care Team
Subjective
-
Date of Service: September 06, 2024
Objective Data
-
Lab Results
09/06/24 04:17
PT 15.4 Sec (11.4-14.6) H 09/06/24 04:17
INR 1.17 09/06/24 04:17
APTT 31.4 Sec (23.4-35.0) 09/05/24 10:28
Vital Signs
Vital Signs
Temp Pulse Resp BP Pulse Ox
98.1 F 64 11 118/70 92
09/06/24 06:00 09/06/24 07:15 09/06/24 07:15 09/06/24 07:00 09/06/24 07:15
CT Intake/Output/Weight
09/05/24 09/06/24 09/06/24
18:59 06:59 18:59
Intake Total 515.4 / 1471.1 955.7 / 1471.1
Output Total 665 / 1125 460 / 1125
Balance -149.6 / 346.1 495.7 / 346.1
SaO2: 92
Physical Exam
-
General: Awake and AOx3
Cardiovascular: Regular rate & rhythm, No Murmurs and Rub
Respiratory: Decreased Breath Sounds
Sternum: Stable
Incision: Clean, Dry and Intact
Extremities: No Edema (1+ DPs b/l)
Abdomen: soft, nontender, nondistended, + decreased bowel sounds
Data Reviewed
-
Lab Results: Results Reviewed
Medications: Active Meds Reviewed
Chest X-Ray: Report Reviewed and Image Reviewed
ECG: Report Reviewed and Image Reviewed
--- NOTE | 2024-09-06 07:55 | W.PN.ANS.POP ---
Anesthesia Post Operative
- Anesthesia Post Op Note
Vital Signs Stable-See Nursing Note: Yes
Airway Patent: Yes
Adequate Pain Control: Yes
Change in Mental Status: No
Current Postoperative Nausea & Vomiting: No
Anesthesia Complications: No
General Anesthetic Recall: No
Unplanned Admission: No
Post Op Hydration Adequate: Yes
[2024-09-06 08:12] LABS: Glucose - Point of Care 167 mg/dl (70-99)
[2024-09-06] MEDS: NSS IV (08:23)
--- NOTE | 2024-09-06 08:30 | PTCARENOTE ---
Assumed care of patient at 0700. Pt is awake, alert, and oriented. Pt with complaints of sternal pain, PRN Flexeril administered for relief. Pt remains SR with HR 60's. BP 129/58 MAP 74. Epicardial V wire in place disconnected from box, box set to
VVI 70/10/3. Mediastinal chest tubes x2 in place, no sign of air leak or crepitus. Pulse oximetry 93% on 6L nasal cannula. Pt tolerating clear liquid diet. Kruger catheter remains in place draining yellow urine. Kruger care completed. Midsternal
incision approximated and PICKER/PULLER. Right IJ cordis in place with KVO. Left radial Phuong intact. Pt remains on Cardene, Nitro, and Insulin.
[2024-09-06] MEDS: SENOKOT-S 1 TABLET PO ×2 (08:35→19:26)
[2024-09-06] MEDS: LOW STRENGTH ASPIRIN 81 MG PO (08:35)
[2024-09-06] MEDS: PACERONE 200 MG PO ×3 (08:35→21:30)
[2024-09-06] MEDS: BACTROBAN 2% OINTMENT 1 APPLIC NASAL ×2 (08:36→19:26)
[2024-09-06] MEDS: PROTONIX 40 MG PO (08:36)
[2024-09-06] MEDS: CRESTOR 20 MG PO (08:36)
[2024-09-06] MEDS: FLEXERIL 5 MG PO ×2 (08:36→19:26)
[2024-09-06] MEDS: LIDOCAINE 4% PATCH 1 PATCH TOPICAL (08:36)
[2024-09-06] MEDS: NEURONTIN 100 MG PO ×3 (08:36→21:29)
[2024-09-06] MEDS: LASIX 40 MG IV ×2 (08:36→13:34)
--- NOTE | 2024-09-06 08:47 | W.PN.CD ---
Today's Communication / Plan
-
- coumadin dosing per Ct surgery
- on IV cardene and IV NTG. Wean as outpatient meds restarted
- pre op meds included Coreg, hydralazine, isosorbide, spironolactone
Impression / Plan
-
status-post AVR (mechanical) 09/05/24 for Severe aortic regurgitation and stenosis,
- in sinus
- remains on IV cardene and NTG
- coumadin dosing per Ct surgery
Dilated cardiomyopathy ( dilated LV with preserved LVF)LVEF 55-60%
- monitor post op
Primary hypertension- monitor post op
- on IV cardene and IV NTG. Wean as outpatient meds restarted
- pre op meds included Coreg, hydralazine, isosorbide, spironolactone
.
ARMINDA - acute on chronic. june creatinine 1.5-1.6. Immediately pre op 1.3 and now 2.0 . Monitor closely
Hyperlipidemia
Coronary artery disease -
- nonobstructive including RCA 50% on preop cath.
Chronic hepatitis
GERD
ADHD
Physical Exam
Vital Signs/Labs
Vital Signs
Temp Pulse Resp BP Pulse Ox
98.1 F 68 21 106/59 93
09/06/24 06:00 09/06/24 08:15 09/06/24 08:15 09/06/24 08:00 09/06/24 08:15
09/05/24 09/06/24 09/07/24
06:59 06:59 06:59
Actual Weight 100.1 kg 103.8 kg
09/06/24 04:17
PT 15.4 Sec (11.4-14.6) H 09/06/24 04:17
INR 1.17 09/06/24 04:17
APTT 31.4 Sec (23.4-35.0) 09/05/24 10:28
Magnesium 2.2 mg/dl (1.6-2.3) 09/06/24 04:17
Physical Exam
Constitutional: No acute distress
Cardiovascular: Rhythm & rate is regular and Other (crisp S2)
Respiratory: Respiratory effort normal
GI: Soft
Neuro/Psych: Alert
Data Reviewed
-
Date of Service: September 06, 2024
Medical Decision Making: Reviewed Test Results
Medical Tests (PFT, Pathology etc): Report Reviewed by me
Labs: Labs Reviewed by me
[2024-09-06] MEDS: NOVOLIN R INSULIN INFUSION 100 IV (08:49)
--- NOTE | 2024-09-06 09:06 | W.PN.UPDATE ---
Update Note
Progress Note Update
Nopacing required overnight. One bipolar ventricular pacing wire removed without difficulty. Bedrest x 1 hour and vital signs q 15min x 4 per protocol.
[2024-09-06 10:52] LABS: Glucose - Point of Care 141 mg/dl (70-99)
[2024-09-06] MEDS: COMPAZINE 10 MG PO (10:52)
[2024-09-06 11:31] LABS: Blood Urea Nitrogen 35 mg/dl (9-20); Calcium 8.9 mg/dl (8.4-10.2); Carbon Dioxide 24 mmol/L (22-30); Chloride 109 mmol/L (98-107); Estimated Creatinine Clearance 54 ml/min; Glucose 138 mg/dl (70-99); Potassium 4.2 mmol/L (3.5-5.1); Sodium 139 mmol/L (135-145); eGFR 43.24
--- NOTE | 2024-09-06 11:45 | PTCARENOTE ---
Epicardial V wire pulled by CT FARHEEN, Deidra. Vitals and chest tube output monitored. Mediastinal chest tubes removed per order. Labs collected and reviewed. Pt remains SR with HR 60's. BP 143/62 MAP 81. Pt remains on Cardene, Nitro, and Insulin.
[2024-09-06 13:01] LABS: Glucose - Point of Care 111 mg/dl (70-99)
[2024-09-06] MEDS: FERRLECIT 110 MG IV (13:34)
--- NOTE | 2024-09-06 13:55 | W.PN.INTV ---
Today's Communication / Plan
Recommendations
Continue postoperative care
Increased mobility as able
Follow chest tube output
Follow hemoglobin
Sign off
Assessment
-
48-year-old man with past medical history noted admitted to the hospital for aortic valve replacement. Surgery underwent on 09/05/[address] Alcaraz. We were consulted post surgery for postoperative management.
Status postsurgical aortic valve replacement Dr. Alcaraz 09/05/2024
REY: EF�55-60%, mildly dilated LV, moderate LVH
Postoperative mechanical ventilation
Postoperative anemia next
Conditions present prior admission:
Severe aortic insufficiency and moderate aortic stenosis
Dilated Myopathy? Postviral-current LVEF 45% and dilated left ventricle.
Chronic kidney disease stage III
Hepatitis C
ADHD
Hypertension
Nonobstructive coronary artery disease
Assessment and plan:
Postoperative day 1
Extubated on low rate supplemental oxygen
Encourage incentive spirometry
Increase activity as able
Analgesia with as needed narcotics-watch respiratory status closely
Anemia noted-no evidence of acute bleeding
Follow H&H serially
Hemodynamics -stable. Of vasoactive drugs.
Slight bump in creatinine-follow. Maintain systolic blood pressure 65 mmHg.
PA catheter discontinued.
Follow urinary output
To start Coumadin tomorrow
Heparin drip at some point to bridge. Monitor for bleeding
Chest tube with no excessive drainage-no air leak.
Chest x-ray reviewed: Mild right hemidiaphragm elevation. No acute abnormalities.
Advance diet as tolerated
Head of the bed elevation
Glycemic control per protocol
DVT prophylaxis when safe from the surgical perspective.
No additional recommendation from the critical care perspective.
Sign off
Subjective Dataa
Subjective Data
Date of Service:
Date of Service: September 06, 2024
Chief Complaint: Signals Analyst Follow Up (Status post AVR)
Subjective:
Extubated
Denies any particular complaints
Pain is relatively controlled
Denies shortness of breath at rest
Review of Systems
Cardiopulmonary: Dyspnea (n)
GI: Abdominal Pain (n) and Nausea (n)
Neuro: Headache (n)
Objective Data
Data Reviewed
Vital Signs / I&O / Oxygen:
Vital Signs
Temp Pulse Resp BP Pulse Ox
97.8 F 70 18 138/67 93
09/06/24 12:00 09/06/24 13:55 09/06/24 13:55 09/06/24 13:02 09/06/24 13:55
Intake and Output
09/05/24 09/06/24 09/07/24
06:59 06:59 06:59
Intake Total 1471.1 / 1553.6 433.4 / 433.4
Output Total 1125 / 1180 1335 / 1335
Balance 346.1 / 373.6 -901.6 / -901.6
SaO2 [CPAP] 95
SaO2 [SIMV] 94
SaO2 93
Nasal Cannula flow liters per 6
minute
Physical Exam
General: Comfortable
HEENT: Normocephalic
Cardiovascular: S1-S2
Respiratory: Non-Labored Respirations and Chest Tube (No excessive drainage/no air leak)
GI: Soft and Non Distended
Neurology: Awake
Skin: Good Color
Labs/Micro/Reports
Lab Data
09/06/24 04:17
09/06/24 10:47
Laboratory Results
09/06/24 09/06/24
04:17 05:14
PT 15.4 H
INR 1.17
pH 7.33 L
pCO2 39
pO2 73 L
HCO3 20.6 L
O2 Delivery Level 6l
--- NOTE | 2024-09-06 14:28 | CM ---
CM following for DC planning needs.
I met w/ patient at bedside. Patient is POD#1, feels well.
Reviewed CM role and DC plan. Anticipated DC plan is for home w/ CT Transitional Care RN.
CM to cont. to follow.
--- NOTE | 2024-09-06 16:15 | PTCARENOTE ---
Insulin gtt d/c'd per order. Additional dose of 12.5mg PO Lopressor administered. Pt titrated off Levo and Nitro. A-line d/c'd. Pt assisted OOB without issue. Pt received 40mg IV Lasix BID with good urine output, Kruger catheter remains in place per
order. Pt remains SR with HR 70's. BP 125/75 MAP 89. Pulse oximetry 93% on 2L nasal cannula.
[2024-09-06] MEDS: COUMADIN 2.5 MG PO (17:14)
[2024-09-06] MEDS: COREG 25 MG PO (19:26)
--- NOTE | 2024-09-06 19:30 | PTCARENOTE ---
Patient received from RN @ 1900. Patient sitting in chair comfortably w/ call osorio in reach. NSR BP 130/76 HR 78. Heart sounds audible w/ click. Radial and pedal pulses present. Trace edema noted in lower bilateral ankles. POX 93% RA. Lungs
diminished in bases. IS 2000. Bowel sounds hypoactive. Kruger draining clear yellow urine. Sternal incision well approximated JAIDEN. CT dressing C/D/I. RIJ cordis and right PIV patent and intact.
--- NOTE | 2024-09-06 23:55 | PTCARENOTE ---
Patient reassessed. NSR BP 144/59 HR 72 POX 92% 2L NC. Patient washed w/ CHG wipes.
[2024-09-07] VITALS (10 sets, daily range): BP systolic 134–156; BP diastolic 71–79; PULSE 80; O2SAT 95–96; BMI 29.7
--- NOTE | 2024-09-07 04:43 | PTCARENOTE ---
Patient reassessed. NSR BP 137/75 HR 75 POX 93% 2L NC. Labs drawn.
[2024-09-07 04:45] LABS: Hematocrit 33.2 % (39.0-52.0); Hemoglobin 11.3 g/dL (13.0-18.0); Mean Corpuscular Hgb 30.7 pg (27.0-31.0); Mean Corpuscular Volume 90.2 fL (80.0-94.0); Mean Platelet Volume 10.7 fL (7.4-10.4); Platelet Count 166 10^3/uL (130-400); Red Blood Cell Count 3.68 10^6/uL (4.70-6.10); Red Cell Dist. Width 13.7 % (11.5-14.5); White Blood Cell Count 18.9 10^3/uL (4.8-10.8)
[2024-09-07 05:04] LABS: INR 1.32; PT 16.6 Sec (11.4-14.6)
[2024-09-07 05:08] LABS: Blood Urea Nitrogen 35 mg/dl (9-20); Calcium 8.4 mg/dl (8.4-10.2); Carbon Dioxide 30 mmol/L (22-30); Chloride 105 mmol/L (98-107); Estimated Creatinine Clearance 65 ml/min; Glucose 156 mg/dl (70-99); Magnesium 2.1 mg/dl (1.6-2.3); Potassium 4.4 mmol/L (3.5-5.1); Sodium 138 mmol/L (135-145); eGFR 53.15
[2024-09-07] MEDS: TYLENOL 1000 MG PO ×3 (06:29→21:46)
--- NOTE | 2024-09-07 07:40 | W.PN.CT ---
Today's Communication / Plan
-
-pod #2
-no issues overnight, slept
-Coumadin started on 09/06-got 2.5 mg. INR today 1.32
-plans to start iv Heparin today for mechanical AVR
-diuresed with 40 iv Lasix on 09/06 (UO 4574)
-Cr trended down - 1.6 today from 2.0. Preop Cr is 1.6
-encourage IS, OOB, ambulate
Assessment / Plan
-
- Severe aortic valve insufficiency with moderate aortic valve stenosis, dilated LV- s/p Surgical aortic valve replacement [25 mm mechanical aortic valve]; Left atrial appendage exclusion [35 mm device] by Dr. Alcaraz on 09/05/24, pod #2
- Intraop REY: LVEF preoperative was mildly depressed at 45 to 50%, there is no significant regional wall motion abnormalities. Following surgery his EF essentially was normalized and LV appeared to be less dilated. He did have an element of left
ventricular hypertrophy. There were no new regional wall motion abnormalities. His left atrial appendage was verified to be free of any thrombus or debris preoperatively and found to be totally occlusive postoperatively.
- Nonischemic dilated cardiomyopathy, LVEF of 45% and dilated left ventricle (former EF of 15%, possible viral related?)
- CKD stage III (Cr 1.6 preop)
- Hepatitis C
- ADHD
- Hypertension
- Nonobstructive CAD
- Mild tricuspid valve insufficiency
- Mild aortic ectasia
- Acute postop blood loss anemia
- Acute postop atelectasis
- Acute postop hypovolemia with subsequent hypervolemia
- Suspected acute postop pericarditis/+ rub
- ARMINDA on CKD
Discussed patient care with: Nursing and Care Team
Subjective
-
Date of Service: September 07, 2024
Objective Data
-
Lab Results
09/07/24 04:27
09/07/24 04:27
PT 16.6 Sec (11.4-14.6) H 09/07/24 04:23
INR 1.32 09/07/24 04:23
APTT 31.4 Sec (23.4-35.0) 09/05/24 10:28
Vital Signs
Vital Signs
Temp Pulse Resp BP Pulse Ox
98.8 F 75 18 137/75 92
09/07/24 03:00 09/07/24 04:30 09/07/24 03:00 09/07/24 03:07 09/07/24 04:30
CT Intake/Output/Weight
09/06/24 09/07/24 09/07/24
18:59 06:59 18:59
Intake Total 473.4 / 523.4 50 / 523.4
Output Total 2455 / 3350 895 / 3350
Balance -1981.6 / -2826.6 -845 / -2826.6
SaO2: 92
Physical Exam
-
General: Awake and AOx3
Cardiovascular: Regular rate & rhythm, No Murmurs and Rub
Respiratory: Decreased Breath Sounds
Sternum: Stable
Incision: Clean, Dry and Intact
Abdomen: soft, nontender, nondistended, + decreased bowel sounds
Extremities: No Edema (1+ DPs b/l)
Data Reviewed
-
Lab Results: Results Reviewed
Medications: Active Meds Reviewed
Chest X-Ray: Report Reviewed and Image Reviewed
ECG: Report Reviewed and Image Reviewed
--- NOTE | 2024-09-07 08:34 | PTCARENOTE ---
assumed care of pt from previous shift RN, sinus rhythm on tele, VSS. Lungs diminished, pox 92% on RA, coughing and deep breathing encouraged. +bs, tolerating PO intake, emerson draining yellow. Surgical sites stable. Right IJ cordis w KVO infusing,
PIV flushes easily. Plan of care reviewed and questions encouraged.
[2024-09-07] MEDS: LOW STRENGTH ASPIRIN 81 MG PO (09:34)
[2024-09-07] MEDS: SENOKOT-S 1 TABLET PO ×2 (09:34→19:56)
[2024-09-07] MEDS: PACERONE 200 MG PO ×3 (09:34→21:46)
[2024-09-07] MEDS: NEURONTIN 100 MG PO ×3 (09:34→21:46)
[2024-09-07] MEDS: COREG 25 MG PO ×2 (09:34→19:56)
[2024-09-07] MEDS: CRESTOR 20 MG PO (09:34)
[2024-09-07] MEDS: PROTONIX 40 MG PO (09:34)
[2024-09-07] MEDS: BACTROBAN 2% OINTMENT 1 APPLIC NASAL ×2 (09:35→19:56)
[2024-09-07] MEDS: LIDOCAINE 4% PATCH TOPICAL (09:38)
[2024-09-07] MEDS: HEPARIN 25000 UNITS/250 ML IV (09:40)
[2024-09-07] MEDS: NSS 500 IV (09:40)
--- NOTE | 2024-09-07 09:53 | PTCARENOTE ---
emerson catheter removed as ordered
[2024-09-07] MEDS: LASIX 40 MG IV (10:29)
--- NOTE | 2024-09-07 10:38 | W.PN.CD ---
Today's Communication / Plan
-
- AMiodarone and Coreg started
- Warfarin today
Impression / Plan
-
status-post AVR (mechanical)
- Severe aortic valve insufficiency with moderate aortic valve stenosis, dilated LV
- s/p Surgical aortic valve replacement [25 mm mechanical aortic valve]; Left atrial appendage exclusion [35 mm device] by Dr. Alcaraz on 09/05/24
- in sinus
- On ASA/ Heparin
- On Amiodarone, Coreg
- Coumadin dosing per Ct surgery
Dilated cardiomyopathy ( dilated LV with preserved LVF)LVEF 55-60%
- monitor post op
Primary hypertension- monitor post op
- off IV cardene and IV NTG now - Coreg is restarted.
- pre op meds included Coreg, hydralazine, isosorbide, spironolactone - likely will add slowly including possibility of ARB
.
ARMINDA - acute on chronic. june creatinine 1.5-1.6. Immediately pre op 1.3 and now 2.0 . Monitor closely
Hyperlipidemia
Coronary artery disease -
- nonobstructive including RCA 50% on preop cath.
Chronic hepatitis
GERD
ADHD
Physical Exam
Vital Signs/Labs
Vital Signs
Temp Pulse Resp BP Pulse Ox
99 F 79 16 156/79 92
09/07/24 08:19 09/07/24 10:00 09/07/24 08:19 09/07/24 09:58 09/07/24 08:52
09/06/24 09/07/24 09/08/24
06:59 06:59 06:59
Actual Weight 103.8 kg 102.2 kg
09/07/24 04:27
09/07/24 04:27
PT 16.6 Sec (11.4-14.6) H 09/07/24 04:23
INR 1.32 09/07/24 04:23
APTT Cancelled 09/07/24 08:13
Magnesium 2.1 mg/dl (1.6-2.3) 09/07/24 04:27
Physical Exam
Constitutional: No acute distress and Comfortable
EENT: Anicteric and Moist mucous membranes
Cardiovascular: Rhythm & rate is regular, Pedal edema is absent and JVD pressure is normal
Respiratory: Respiratory effort normal, Lungs clear to auscul. and Wheeze Absent
GI: Soft, Non tender and Normal bowel sounds
Neuro/Psych: Alert, Oriented, AO x 3 and Motor deficits absent
Other: Skin
Data Reviewed
-
Date of Service: September 07, 2024
Medical Decision Making: Reviewed Test Results, Test Interpretation and Review of Case with other Provider
EKG: Tracing Personally Visualized and interpreted
Echo: Report Reviewed by me
X-Ray/CT/US/MRI/NUC/PET: Image Personally Visualized and interpreted
Labs: Labs Reviewed by me
Old Records: Reviewed
Critical Care Time (in minutes): 35
--- NOTE | 2024-09-07 12:15 | PTCARENOTE ---
pt tolerated cardiac rehab, VSS, pt denies pain.
[2024-09-07] MEDS: FERRLECIT 110 MG IV (14:31)
[2024-09-07 16:14] LABS: APTT 60.4 Sec (23.4-35.0)
--- NOTE | 2024-09-07 17:12 | CM ---
dc plans remain home when medically stable and f/u visit from the ct transitional care nurse after dc
[2024-09-07] MEDS: COUMADIN 5 MG PO (17:50)
--- NOTE | 2024-09-07 18:00 | PTCARENOTE ---
pt tolerated multiple walks in [place] w RN, PTT drawn and monitored as ordered. Heparin gtt maintained at 1000 units/hr.
--- NOTE | 2024-09-07 20:00 | PTCARENOTE ---
Assumed care of patient at 1900. Patient found oob in chair at time of assessment. Patient is AOx4, follows commands appropriately, moves all extremities. Lung sounds are diminished in the bases saO2 98% on RA. Heart sounds are audible, click
present on auscultation, SR on the monitor, normal palpable pulses, no observable edema. Patient has active BS in all four quadrants, pending BM, and voids in urinal. There is a sternal incision approx with surg adhesive JAIDEN and ABD dressing over CT
wounds CDI. Paitnet has R IJ cordis receiving KVO and 18 G in R Hand receiving heparin gtt at 1000u per hour. Call osorio within reach.
[2024-09-07 22:26] LABS: APTT 57.3 Sec (23.4-35.0)
[2024-09-08] VITALS (15 sets, daily range): BP systolic 133–165; BP diastolic 75–93; PULSE 65–70; O2SAT 94–98; BMI 29.4
--- NOTE | 2024-09-08 01:13 | PTCARENOTE ---
Patient reassessed. Heparin gtt titrated to [address] PA following subtherapeutic PTT. Remains SR on the monitor. Call osorio within reach.
[2024-09-08 03:45] LABS: Hematocrit 31.2 % (39.0-52.0); Hemoglobin 10.7 g/dL (13.0-18.0); Mean Corp Hgb Conc. 34.3 g/dL (33.0-37.0); Mean Corpuscular Hgb 30.9 pg (27.0-31.0); Mean Corpuscular Volume 90.2 fL (80.0-94.0); Mean Platelet Volume 10.5 fL (7.4-10.4); Platelet Count 151 10^3/uL (130-400); Red Blood Cell Count 3.46 10^6/uL (4.70-6.10); Red Cell Dist. Width 13.5 % (11.5-14.5); White Blood Cell Count 15.1 10^3/uL (4.8-10.8)
[2024-09-08 04:10] LABS: Blood Urea Nitrogen 24 mg/dl (9-20); Calcium 8.3 mg/dl (8.4-10.2); Carbon Dioxide 31 mmol/L (22-30); Chloride 103 mmol/L (98-107); Estimated Creatinine Clearance 86 ml/min; Glucose 131 mg/dl (70-99); Magnesium 2.2 mg/dl (1.6-2.3); Potassium 3.9 mmol/L (3.5-5.1); Sodium 137 mmol/L (135-145); eGFR > 60.00
--- NOTE | 2024-09-08 04:33 | W.PN.CT ---
Today's Communication / Plan
-
Plan:
-No major issues overnight. Neurologically and hemodynamically intact
-On Heparin to Coumadin bridge
-Monitor INR,1.38, was 1.32 yesterday. Received 5 mg Coumadin yesterday
-Postop ARMINDA on CKD has resolved, cr 1.2 today, peaked @ 2.0 yesterday, was 1.6 preop
-D/C cordis
-Encourage use of IS
-OOB into chair/Ambulate
-Home in 1-2 days
Assessment / Plan
-
- Severe aortic valve insufficiency with moderate aortic valve stenosis, dilated LV- s/p Surgical aortic valve replacement [25 mm mechanical aortic valve]; Left atrial appendage exclusion [35 mm device] by Dr. Alcaraz on 09/05/24, pod #3
- Intraop REY: LVEF preoperative was mildly depressed at 45 to 50%, there is no significant regional wall motion abnormalities. Following surgery his EF essentially was normalized and LV appeared to be less dilated. He did have an element of left
ventricular hypertrophy. There were no new regional wall motion abnormalities. His left atrial appendage was verified to be free of any thrombus or debris preoperatively and found to be totally occlusive postoperatively.
- Nonischemic dilated cardiomyopathy, LVEF of 45% and dilated left ventricle (former EF of 15%, possible viral related?)
- CKD stage IIIb (Cr 1.6 preop)
- Hepatitis C
- ADHD
- Hypertension
- Nonobstructive CAD
- Mild tricuspid valve insufficiency
- Mild aortic ectasia
- Acute postop blood loss anemia
- Acute postop atelectasis
- Acute postop hypovolemia with subsequent hypervolemia
- Suspected acute postop pericarditis/+ rub
- ARMINDA on CKD
Discussed patient care with: Cardiology, Nursing, Respiratory Therapy, Pharmacy and Care Team
Subjective
-
Date of Service: September 08, 2024
Pt c/o mild incisional pain, otherwise feels well. Ambulating without difficulty
Objective Data
-
Lab Results
09/08/24 03:27
09/08/24 03:27
PT 16.6 Sec (11.4-14.6) H 09/07/24 04:23
INR 1.32 09/07/24 04:23
APTT 57.3 Sec (23.4-35.0) H 09/07/24 22:00
Vital Signs
Vital Signs
Temp Pulse Resp BP Pulse Ox
98.4 F 73 20 140/75 93
09/08/24 03:35 09/08/24 03:35 09/08/24 03:35 09/08/24 03:35 09/08/24 03:[address]
CT Intake/Output/Weight
09/07/24 09/07/24 09/08/24
06:59 18:59 06:59
Intake Total 50 / 523.4 150 / 790 640 / 790
Output Total 895 / 3350 1200 / 2250 1050 / 2250
Balance -845 / -2826.6 -1050 / -1460 -410 / -1460
SaO2: 93 (RA)
Physical Exam
-
General: Awake, Oriented and AOx3
Cardiovascular: Regular rate & rhythm, No Murmurs and No Gallop
Respiratory: Decreased Breath Sounds (at bases, otherwise clear)
Sternum: Stable
Incision: Clean, Dry, Intact and Dressing Intact
Extremities: Other (+trace edema)
Data Reviewed
-
Lab Results: Results Reviewed
Medications: Active Meds Reviewed
Chest X-Ray: Report Reviewed and Image Reviewed
ECG: Report Reviewed and Image Reviewed
[2024-09-08] MEDS: TYLENOL 1000 MG PO ×3 (05:38→22:16)
[2024-09-08] MEDS: KCL 20 MEQ PO ×2 (05:39→20:24)
[2024-09-08 06:11] LABS: INR 1.38; PT 17.2 Sec (11.4-14.6)
[2024-09-08 06:13] LABS: APTT 62.5 Sec (23.4-35.0)
--- NOTE | 2024-09-08 06:33 | PTCARENOTE ---
Patient reassessed. Remains SR on the monitor. AM hygiene care provided. AM labs obtained. PTT therapeutic this AM.
[2024-09-08] MEDS: LIDOCAINE 4% PATCH TOPICAL (08:33)
--- NOTE | 2024-09-08 08:37 | PTCARENOTE ---
Patient received from technical business analyst resting in bed, dozing but easily arousable and appropriate, states pain controlled. NSR via cm, SaO2 @ 95% on RA. RIJ Cordis w/kvo infusing. Heparin infusing peripherally @ 1100units/hr, titrating per order. All
procedural sites stable. Patient updated to plan of care for the day, in agreement. See work list for full assessment and interventions performed.
[2024-09-08] MEDS: NEURONTIN 100 MG PO ×3 (09:11→22:16)
[2024-09-08] MEDS: CRESTOR 20 MG PO (09:11)
[2024-09-08] MEDS: BACTROBAN 2% OINTMENT 1 APPLIC NASAL ×2 (09:11→20:26)
[2024-09-08] MEDS: PROTONIX 40 MG PO (09:11)
[2024-09-08] MEDS: SENOKOT-S 1 TABLET PO ×2 (09:11→20:21)
[2024-09-08] MEDS: PACERONE 200 MG PO ×3 (09:12→22:16)
[2024-09-08] MEDS: LOW STRENGTH ASPIRIN 81 MG PO (09:12)
[2024-09-08] MEDS: COREG 25 MG PO ×2 (09:12→20:21)
[2024-09-08] MEDS: NSS IV (09:44)
[2024-09-08] MEDS: HEPARIN 25000 UNITS/250 ML IV (10:04)
--- NOTE | 2024-09-08 11:39 | PTCARENOTE ---
Vs obtained, assessment stable. Patient remains oob in chair, states pain controlled. PTT collected.
[2024-09-08 12:02] LABS: APTT 77.5 Sec (23.4-35.0)
--- NOTE | 2024-09-08 13:21 | W.PN.CD ---
Today's Communication / Plan
-
Cont meds and post-op care
Awaiting warfarin to be therapeutic
Impression / Plan
-
status-post AVR (mechanical)
- Severe aortic valve insufficiency with moderate aortic valve stenosis, dilated LV
- s/p Surgical aortic valve replacement [25 mm mechanical aortic valve]; Left atrial appendage exclusion [35 mm device] by Dr. Alcaraz on 09/05/24
- in sinus
- On ASA/ Heparin
- On Amiodarone, Coreg
- Coumadin dosing per Ct surgery
Dilated cardiomyopathy ( dilated LV with preserved LVF)LVEF 55-60%
- monitor post op
Primary hypertension- monitor post op
- off IV cardene and IV NTG now - Coreg is restarted.
- pre op meds included Coreg, hydralazine, isosorbide, spironolactone - likely will add slowly including possibility of ARB
.
ARMINDA - acute on chronic. june creatinine 1.5-1.6. Immediately pre op 1.3 and now 2.0 . Monitor closely
Hyperlipidemia
Coronary artery disease -
- nonobstructive including RCA 50% on preop cath.
Chronic hepatitis
GERD
ADHD
Subjective: Feels well
Physical Exam
Vital Signs/Labs
Vital Signs
Temp Pulse Resp BP Pulse Ox
98.2 F 67 16 133/93 95
09/08/24 11:38 09/08/24 12:00 09/08/24 11:38 09/08/24 11:31 09/08/24 11:38
09/07/24 09/08/24 09/09/24
06:59 06:59 06:59
Actual Weight 225 lb 4.999 oz 223 lb 1.725 oz
09/08/24 03:27
09/08/24 03:27
PT 17.2 Sec (11.4-14.6) H 09/08/24 05:43
INR 1.38 09/08/24 05:43
APTT 77.5 Sec (23.4-35.0) H 09/08/24 11:36
Magnesium 2.2 mg/dl (1.6-2.3) 09/08/24 03:27
Physical Exam
Constitutional: No acute distress
EENT: Anicteric
Cardiovascular: Rhythm & rate is regular and Other (mechanical click )
Respiratory: Respiratory effort normal and Lungs clear to auscul.
GI: Soft
Neuro/Psych: AO x 3
Data Reviewed
-
Date of Service: September 08, 2024
EKG: Tracing Personally Visualized and interpreted (sr)
Echo: Report Reviewed by me
Labs: Labs Reviewed by me
[2024-09-08] MEDS: FERRLECIT 110 MG IV (13:33)
--- NOTE | 2024-09-08 16:05 | PTCARENOTE ---
VS obtained, assessment stable. Patient resting comfortably, perusing menu for dinner.
[2024-09-08] MEDS: COUMADIN 5 MG PO (17:55)
--- NOTE | 2024-09-08 20:00 | PTCARENOTE ---
Assumed care of patient at 1999. Patient found oob in chair at time of assessment. Patient is Aox4, follows commands appropriately, moves all extremities. Lung sounds are diminished in the bases, saO2 96% on RA. Heart sounds are audible, patient has
a click present on auscultation, normal palpable pulses throughout, no observable edema. Patient has active BS in all four quadrants. Pending BM, voiding in the bathroom. There is a sternal incision approx with surg adheisve DIRECTOR OF CASINO and CT wounds with
ABD dressing that is CDI. R arm PIV receiving heparin gtt at 1100 units/hr. Call osorio within reach.
[2024-09-08] MEDS: MELATONIN 5 MG PO (22:58)
--- NOTE | 2024-09-09 | PTCARENOTE ---
Patient reassessed. Remains SR on the monitor. K repleted. Given melatonin HS.
[2024-09-09 03:00] VITALS: BP 145/93
[2024-09-09 03:01] VITALS: BP 145/93
[2024-09-09 03:37] LABS: Hematocrit 32.8 % (39.0-52.0); Hemoglobin 11.1 g/dL (13.0-18.0); Mean Corp Hgb Conc. 33.8 g/dL (33.0-37.0); Mean Corpuscular Hgb 30.4 pg (27.0-31.0); Mean Corpuscular Volume 89.9 fL (80.0-94.0); Mean Platelet Volume 10.4 fL (7.4-10.4); Platelet Count 203 10^3/uL (130-400); Red Blood Cell Count 3.65 10^6/uL (4.70-6.10); Red Cell Dist. Width 13.3 % (11.5-14.5); White Blood Cell Count 12.7 10^3/uL (4.8-10.8)
[2024-09-09 03:45] LABS: INR 1.42; PT 17.6 Sec (11.4-14.6)
[2024-09-09 03:47] LABS: APTT 93.8 Sec (23.4-35.0)
[2024-09-09 03:59] LABS: Blood Urea Nitrogen 18 mg/dl (9-20); Calcium 8.7 mg/dl (8.4-10.2); Carbon Dioxide 26 mmol/L (22-30); Chloride 109 mmol/L (98-107); Estimated Creatinine Clearance 86 ml/min; Glucose 104 mg/dl (70-99); Magnesium 2.2 mg/dl (1.6-2.3); Potassium 4.6 mmol/L (3.5-5.1); Sodium 138 mmol/L (135-145); eGFR > 60.00
--- NOTE | 2024-09-09 05:17 | W.PN.CT ---
Today's Communication / Plan
-
Plan:
-No major issues overnight. Neurologically and hemodynamically intact
-On Heparin to Coumadin bridge
-Monitor INR,1.42 was 1.38 yesterday. Received 5 mg Coumadin yesterday. Awaiting therapeutic INR 2-3 + ASA x 3 months, then 1.5-2.0 plus ASA after 3 months
-Postop ARMINDA on CKD has resolved, cr 1.2 today, peaked @ 2.0 yesterday, was 1.6 preop
-F/U 2-view cxr
-Encourage use of IS
-OOB into chair/Ambulate
-Home later today vs tomorrow
Assessment / Plan
-
- Severe aortic valve insufficiency with moderate aortic valve stenosis, dilated LV- s/p Surgical aortic valve replacement [25 mm mechanical aortic valve]; Left atrial appendage exclusion [35 mm device] by Dr. Alcaraz on 09/05/24, pod #4
- Intraop REY: LVEF preoperative was mildly depressed at 45 to 50%, there is no significant regional wall motion abnormalities. Following surgery his EF essentially was normalized and LV appeared to be less dilated. He did have an element of left
ventricular hypertrophy. There were no new regional wall motion abnormalities. His left atrial appendage was verified to be free of any thrombus or debris preoperatively and found to be totally occlusive postoperatively.
- Nonischemic dilated cardiomyopathy, LVEF of 45% and dilated left ventricle (former EF of 15%, possible viral related?)
- CKD stage IIIb (Cr 1.6 preop)
- Hepatitis C
- ADHD
- Hypertension
- Nonobstructive CAD
- Mild tricuspid valve insufficiency
- Mild aortic ectasia
- Acute postop blood loss anemia
- Acute postop atelectasis
- Acute postop hypovolemia with subsequent hypervolemia
- Suspected acute postop pericarditis/+ rub
- ARMINDA on CKD
Discussed patient care with: Cardiology, Nursing, Respiratory Therapy, Pharmacy and Care Team
Subjective
-
Date of Service: September 09, 2024
Pt c/o mild incisional pain, otherwise feels well
Objective Data
-
Lab Results
09/09/24 03:13
09/09/24 03:13
PT 17.6 Sec (11.4-14.6) H 09/09/24 03:13
INR 1.42 09/09/24 03:13
APTT 93.8 Sec (23.4-35.0) H 09/09/24 03:13
Vital Signs
Vital Signs
Temp Pulse Resp BP Pulse Ox
98.2 F 70 18 145/93 96
09/09/24 03:00 09/09/24 04:00 09/09/24 03:00 09/09/24 03:01 09/09/24 03:01
CT Intake/Output/Weight
09/08/24 09/08/24 09/09/24
06:59 18:59 06:59
Intake Total 694 / 844 460 / 632 172 / 632
Output Total 1500 / 2700 925 / 1950 1025 / 1950
Balance -806 / -1856 -465 / -1318 -853 / -1318
SaO2: 96 (RA)
Physical Exam
-
General: Awake, Oriented and AOx3
Cardiovascular: Regular rate & rhythm, No Murmurs and No Gallop
Respiratory: Decreased Breath Sounds (at bases, otherwise clear)
Sternum: Stable
Incision: Clean, Dry, Intact and Dressing Intact
Extremities: Other (+trace edema)
Data Reviewed
-
Lab Results: Results Reviewed
Medications: Active Meds Reviewed
Chest X-Ray: Report Reviewed and Image Reviewed
ECG: Report Reviewed and Image Reviewed
[2024-09-09 06:00] VITALS: BMI 29.0
--- NOTE | 2024-09-09 06:10 | PTCARENOTE ---
Patient reassessed. Remains SR on the monitor. Successful BM in AM. AM labs obtained. Heparin gtt tapered to 1050. AM hygiene care provided.
[2024-09-09] MEDS: TYLENOL 1000 MG PO (06:35)
[2024-09-09 07:46] VITALS: BP 159/83
[2024-09-09] MEDS: LOW STRENGTH ASPIRIN 81 MG PO (09:37)
[2024-09-09] MEDS: COREG 25 MG PO (09:37)
[2024-09-09] MEDS: CRESTOR 20 MG PO (09:37)
[2024-09-09] MEDS: LIDOCAINE 4% PATCH TOPICAL (09:37)
[2024-09-09] MEDS: PACERONE 200 MG PO (09:37)
[2024-09-09] MEDS: SENOKOT-S 1 TABLET PO (09:37)
[2024-09-09] MEDS: PROTONIX 40 MG PO (09:37)
[2024-09-09] MEDS: NEURONTIN 100 MG PO (09:37)
[2024-09-09] MEDS: NSS IV (09:38)
--- NOTE | 2024-09-09 10:06 | PTCARENOTE ---
assumed care of pt from previous shift RN, sinus rhythm on tele, VSS. Lungs diminished, pox 95% on RA, coughing and deep breathing encouraged. +bs, tolerating PO intake, voids spontaneously. Surgical sites stable. PIV flushes easily. Plan of care
reviewed and questions encouraged.
[2024-09-09] MEDS: COUMADIN 2.5 MG PO (10:52)
--- NOTE | 2024-09-09 12:11 | W.DCSUMMARY ---
Discharge Summary
Discharge Data
Date of Admission: 09/05/24
Date of Discharge: 09/09/24
-
Pending Results: No
Hospital Course
Primary care physician: Saul Berg
Outpatient police clerk: Andrzej Medina
Inpatient consultants: [facility] Cardiology, pulmonary seniour insight manager
Procedures:
1. Aortic valve replacement and left atrial appendage clip
Primary Diagnosis:
1. Bicuspid aortic valve with moderate aortic stenosis and severe aortic insufficiency
Secondary Diagnoses:
1. Nonobstructive coronary disease (50% RCA)
2. Dilated cardiomyopathy with recovered EF to 55%
3. Hypertension
4. Hyperlipidemia
5. ADHD
6. Hepatitis C�treated (RNA titer negative)
7. ARMINDA on CKD 3 A
8. Acute postop blood loss anemia
9. Acute postop hypovolemia with subsequent hypervolemia
10. Suspected acute postop pericarditis/+ rub
11. ARMINDA on CKD
HPI: 48-year-old male was evaluated in CT office for asymptomatic bicuspid aortic valve and moderate aortic stenosis with severe aortic insufficiency. Left heart catheterization reported shortness of coronary disease. Patient was electively
09/05/2024 for an aortic valve replacement.
Hospital course: Patient was taken to the operating room and underwent an AVR #25 On�X mechanical valve and left atrial appendage exclusion with #[address] Talib Alcaraz. For further details, please see operative note. Patient received no
intraoperative blood products and returned to CVICU on Levophed, Precedex, and insulin. Patient was extubated at 1400 today of surgery and Cardene initiated for hypertension. On postoperative day #1, Lopressor was changed to Coreg for better blood
pressure control. Patient had notable rub and EKG consistent with pericarditis. Unable to initiate colchicine due to ARMINDA on CKD. Temporary ventricular wires and 2 mediastinal chest drains were removed. Coumadin was initiated and patient diuresed
for fluid retention (weight gain of 3 kg overnight). Heparin was initiated on postoperative day #2. On postoperative day #4, INR was 1.42 after receiving Coumadin 2.5�5-5 mg dosing. Additional Coumadin 2.5 mg given in the morning. Case discussed
with Dr. Alcaraz and patient stable for discharge on 5 mg Coumadin. INR will be checked by transitional care nurses. Imdur and hydralazine were resumed for hypertension per discussion with cardiology and home dose of Lasix will continue. Patient
experienced no episode of atrial fibrillation and prophylactic amiodarone was discontinued on discharge.Patient ambulated in halls with physical therapy and deemed stable for discharge to home.
Home medication changes:
Stop spironolactone
Discharge Plan
-
Patient Disposition: Home (Routine Discharge)
Discharge Diagnosis/Procedures: Aortic Valve Replacement, left atrial appendage clip
Condition: Good
Diet: Low Cholesterol and Low Sodium
Activity: No strenuous activity
Driving Restrictions: Not until seen by your Dr
Bathing Restrictions: OK to Shower
Other Services: Cardiac Rehab
Specialty Instructions: Weigh Daily- Call MD for wt gain/loss 3 lbs overnight/5 lbs in 1 week
Referrals:
CT Transitional Care Nurse [Outside]
Referral Note: The Cardiothoracic Transitional Care Nurse will call you to set up a visit in 1-2 days.
[facility] Cardiac Rehab [Outside]
Referral Note: Cardiac Rehab Orientation appointment is on 10/19/24 at 1pm_�
The Cardiac Rehab gym is located on the first floor of the [facility].
Quyne Sheets NP [Specified Professional Personl, Cardiology] - 10/17/24 9:40 am
Saul Berg DO [Family Provider, Family Practice]
Talib Alcaraz MD [Active, Cardiac Surgery] - 10/08/24 1:45 pm
Prescriptions:
New
gabapentin 100 mg Capsule
100 mg PO TID Qty: 30 0RF
oxycodone 5 mg Tablet
5 mg PO Q4HPRN PRN (Reason: svere pain) Qty: 10 0RF
warfarin [Jantoven] 5 mg tablet
5 mg PO QPM Qty: 30 2RF
Continued
acetaminophen 325 MG tablet
650 mg PO Q4HPRN PRN (Reason: mild pain) 0RF
pantoprazole [Protonix] 40 mg Tablet,Delayed Release (Dr/Ec)
40 mg PO DAILY
aspirin 81 MG tablet,delayed release (DR/EC)
81 mg PO HS
cholecalciferol (vitamin D3) [Vitamin D3] 25 mcg (1,000 unit) Tablet
25 mcg PO DAILY
furosemide 40 MG tablet
40 mg PO DAILY
carvedilol [Coreg] 25 MG tablet
25 mg PO BID
rosuvastatin 20 mg tablet
20 mg PO DAILY Qty: 90 5RF
isosorbide mononitrate 30 MG tablet extended release 24 hr
30 mg PO DAILY Qty: 0 0RF
hydralazine 25 MG tablet
25 mg PO BID Qty: 0 0RF
Discontinued
spironolactone 12.5 MG tablet
12.5 mg PO DAILY
Discharge Orders:
Discharge Patient (As Directed); Ordered 09/09/24
Ordered By: Deidra Shah
Care Plan Goals
Care Plan Goals:
Problem: Readiness for enhanced knowledge related to diagnosis and treatment plan
Goal: Understand your diagnosis and treatment plan needs, including medications if applicable.
Instructions: Know your diagnosis, underlying causes and treatment plan options, including medications if applicable. Consult with your health care team to learn about your diagnosis and treatment plan, including medications if applicable.
Discharge Date and Time
Print Language: [place]
[2024-09-09] MEDS: BACTROBAN 2% OINTMENT 1 APPLIC NASAL (12:19)
--- NOTE | 2024-09-09 13:12 | PTCARENOTE ---
tele monitor and IV line removed. pt tolerated shower. discharge instructions, medication list and follow up appointments reviewed w the pt and questions encouraged.
[2024-09-09 13:13] VITALS: BP 148/80
--- NOTE | 2024-09-09 13:32 | W.PN.CD ---
Today's Communication / Plan
-
discharge today
Impression / Plan
-
status-post AVR (mechanical)
- Severe aortic valve insufficiency with moderate aortic valve stenosis, dilated LV
- s/p Surgical aortic valve replacement [25 mm mechanical aortic valve]; Left atrial appendage exclusion [35 mm device] by Dr. Alcaraz on 09/05/24
- in sinus
- On ASA/ Heparin
- On Amiodarone, Coreg
- Coumadin dosing per Ct surgery
Dilated cardiomyopathy ( dilated LV with preserved LVF)LVEF 55-60%
- monitor post op
Primary hypertension- monitor post op
- off IV cardene and IV NTG now - Coreg is restarted.
- pre op meds included Coreg, hydralazine, isosorbide, spironolactone - likely will add slowly including possibility of ARB
.
ARMINDA - acute on chronic. june creatinine 1.5-1.6. Immediately pre op 1.3 and now 2.0 . Monitor closely
Hyperlipidemia
Coronary artery disease -
- nonobstructive including RCA 50% on preop cath.
Chronic hepatitis
GERD
ADHD
Subjective: Feels well
Physical Exam
Vital Signs/Labs
Vital Signs
Temp Pulse Resp BP Pulse Ox
98.2 F 65 16 159/83 95
09/09/24 13:13 09/09/24 13:13 09/09/24 13:13 09/09/24 07:46 09/09/24 13:13
09/08/24 09/09/24 09/10/24
06:59 06:59 06:59
Actual Weight 223 lb 1.725 oz 220 lb 0.341 oz
09/09/24 03:13
09/09/24 03:13
PT 17.6 Sec (11.4-14.6) H 09/09/24 03:13
INR 1.42 09/09/24 03:13
APTT Cancelled 09/09/24 10:00
Magnesium 2.2 mg/dl (1.6-2.3) 09/09/24 03:13
Physical Exam
Constitutional: No acute distress and Comfortable
Cardiovascular: Rhythm & rate is regular and Other (mechanical click)
Respiratory: Respiratory effort normal and Lungs clear to auscul.
GI: Soft
Neuro/Psych: AO x 3
Data Reviewed
-
Date of Service: September 09, 2024
EKG: Tracing Personally Visualized and interpreted (sr)
Labs: Labs Reviewed by me
== END 2024-09-09 13:36 | disposition home or self-care (01) | DRG 220 ==
LOC: CVICU 04:57
PROVIDERS: Anesthesiology; Physician Assistant Medical; ADMITTING PHYSICIAN Thoracic Surgery (Cardiothoracic Vascular Surgery); CONSULT PHYSICIAN Internal Medicine Cardiovascular Disease; CONSULT PHYSICIAN Internal Medicine Critical Care Medicine; FAMILY PHYSICIAN Family Medicine
PROC: B24BZZ4 Ultrasonography of Heart with Aorta, Transesophageal (ICD-10-PCS; 2024-09-05)
PROC: 02RF0JZ Replacement of Aortic Valve with Synthetic Substitute, Open Approach (ICD-10-PCS; 2024-09-05)
PROC: 5A1221Z Performance of Cardiac Output, Continuous (ICD-10-PCS; 2024-09-05)
PROC: 02L70CK Occlusion of Left Atrial Appendage with Extraluminal Device, Open Approach (ICD-10-PCS; 2024-09-05)
DX: I35.2 Nonrheumatic aortic (valve) stenosis with insufficiency (principal); D62 Acute posthemorrhagic anemia; I42.0 Dilated cardiomyopathy; I30.8 Other forms of acute pericarditis; N17.9 Acute kidney failure, unspecified; J98.11 Atelectasis; B18.2 Chronic viral hepatitis C; F90.9 Attention-deficit hyperactivity disorder, unspecified type; I12.9 Hypertensive chronic kidney disease with stage 1 through stage 4 chronic kidney disease, or unspecified chronic kidney disease; I25.10 Atherosclerotic heart disease of native coronary artery without angina pectoris; I77.810 Thoracic aortic ectasia; I36.1 Nonrheumatic tricuspid (valve) insufficiency; N18.31 Chronic kidney disease, stage 3a; E86.1 Hypovolemia; E87.70 Fluid overload, unspecified; K21.9 Gastro-esophageal reflux disease without esophagitis; E78.00 Pure hypercholesterolemia, unspecified; Z79.82 Long term (current) use of aspirin; Z79.899 Other long term (current) drug therapy; Z82.49 Family history of ischemic heart disease and other diseases of the circulatory system; Z87.891 Personal history of nicotine dependence
CPT/HCPCS: 88305; 88311; 36415; 71045; 80048; 80053; 81003; 82248; 82330; 82565; 82805; 82810; 82947; 82962; 83036; 83735; 84132; 84302; 84520; 85014; 85018; 85025; 85027; 85049; 85610; 85730; 86850; 86870; 86900; 86901; 86920; 86922; 87070; 93005; 93312; 93320; 93325; 94002; C1713; J2916

== ENCOUNTER 2024-09-25 11:42 | Inpatient (IN) | payer OTHER, SELFPAY ==
[2024-09-22 18:44] VITALS: BP 124/92
[2024-09-22 19:03] LABS: Hematocrit 37.2 % (39.0-52.0); Hemoglobin 12.6 g/dL (13.0-18.0); Mean Corp Hgb Conc. 33.9 g/dL (33.0-37.0); Mean Corpuscular Volume 91.4 fL (80.0-94.0); Nucleated Red Blood Cells % 0 % (-); Platelet Count 479 10^3/uL (130-400); Red Cell Dist. Width 13.2 % (11.5-14.5)
[2024-09-22 19:13] LABS: INR 1.61; PT 19.4 Sec (11.4-14.6)
[2024-09-22 19:14] LABS: APTT 36.4 Sec (23.4-35.0)
[2024-09-22 19:24] LABS: ALT (SGPT) 29 U/L (0-50); AST (SGOT) 20 U/L (17-59); Albumin 4.1 g/dl (3.5-5.0); Alkaline Phosphatase 147 U/L (38-126); Blood Urea Nitrogen 14 mg/dl (9-20); Calcium 10.1 mg/dl (8.4-10.2); Carbon Dioxide 29 mmol/L (22-30); Chloride 106 mmol/L (98-107); Glucose 134 mg/dl (70-99); Potassium 5.3 mmol/L (3.5-5.1); Sodium 140 mmol/L (135-145); Total Protein 7.1 g/dl (6.3-8.2); eGFR 57.43
[2024-09-22 19:42] LABS: Troponin I 0.048 ng/ml
[2024-09-22 20:15] VITALS: BP 116/88
[2024-09-22 21:00] VITALS: BP 136/78
--- NOTE | 2024-09-22 21:49 | ED.GENMED ---
History of Present Illness
General
Chief Complaint: Numbness
Time Seen by Provider: 09/22/24 20:26
History of Present Illness
History of Present Illness:
48-year-old male with history of aortic stenosis and aortic insufficiency status post mechanical aortic valve replacement on Coumadin presenting to the emergency department for episode of paresthesias to the left side of his body. Patient reports
earlier this afternoon he was sitting down outside and felt paresthesias to the left side of his body. He got up and walked into his house and by the time he got into his house his symptoms had resolved. Notes a similar episode about a week ago at
which time he was lying down. Again when he got up to walk around, symptoms had improved. He is currently asymptomatic. He called his cardiothoracic surgeon who advised that he come into the hospital for evaluation. Notes compliance with his
medications. Denies any cardiac symptoms such as chest pain or difficulty breathing. Denies any history of stroke. Denies any weakness. Denies additional acute medical complaints
Past History
Past History
ED Past Medical History: Psychiatric (ADHD)
ED Past Surgical History: None
Social History
Tobacco: Smoker
Alcohol: Occasional
Drug: None
Phy Exam
Physical Exam
Physical Exam:
General: Well-appearing, no clinical signs of dehydration, nontoxic and in no acute distress
HEENT: protecting airway
Neck: appears supple
CV: Normal heart rate, regular rhythm
Resp: No accessory muscle use, no increased work of breathing, lungs clear to auscultation bilaterally
Abd: Soft and non-distended, no tenderness to palpation
Extremities: No deformities, no swelling, no erythema
Neuro: alert, no focal neurologic deficit
: deferred
Rectal: deferred
Psych: Normal affect
Skin: Intact
NIH Stroke Score
Level of Consciousness: 0 - Alert
LOC questions: 0-Answers both correctly
LOC Commands: 0-Performs both correctly
Best Gaze: 0-Normal
Visual Meneses: 0=Normal, no visual loss
Facial palsy: 0=Normal, symmetrical
Motor - Right Arm: 0=No drift 10 seconds
Motor - Left Arm: 0=No drift 10 seconds
Motor - Right Le-No drift 5 seconds
Motor - Left Le-No drift 5 seconds
Limb Ataxia: 0-Absent
Sensation: 0-Normal
Best Language: 0-No aphasia
Dysarthria: 0-Normal
Extinction and Inattention: 0-No abnormality
Total Score:: 0
Course
Orders/Labs/Results
Orders:
Orders
09/22/24 18:54
Complete Blood Count/With Diff Urgent
Comprehensive Metabolic Panel Urgent
PTT Urgent
Prothrombin Time Urgent
Troponin I Urgent
09/22/24 19:54
ECG [Electrocardiogram (*1)] Urgent
Reason for Study: Fatigue / Weakness
EKG- Treatment ONCE
09/22/24 22:09
Electrocardiogram (*1) Urgent
Reason for Study: TIA/Stroke
EKG- Treatment ONCE
09/22/24 22:21
Troponin I Urgent
09/23/24 00:01
CT Head & Neck Angio W/wo IV Urgent
Reason For Exam: L-sided numbness, recent AV replace
09/23/24 01:48
Warfarin [Coumadin] 7.5 mg PO NOW STA
09/23/24 02:26
Warfarin [Coumadin] 2.5 mg PO NOW STA
09/23/24 03:56
Admit/Transfer Patient As Directed
Co-Sign Provider:
Level of Care: Observation services
Assign to:: Telemetry
Physician / Group: Nuzhat Castillo
Diagnosis: TIA
Reason for Telemetry: CVA/TIA
Date to Stop Telemetry: 09/26/24
Time to Stop Telemetry: 11:00
09/23/24 03:58
PRN Pain Medication Management As Directed
May give lesser potent ordered pain med per pt: Yes
preference::
Protocol:: Medication orders for pain may be administered in a
manner that supports deferring to patient preference
when the pt is:
- Requesting an ordered lesser potent pain medication.
Least to most potent pain medications are defined
as: acetaminophen < NSAID < tramadol < opioids
(morphine, oxycodone, hydromorphone).
- Requesting a lesser dose of the same medication IF
ORDERED.
- Requesting a less intrusive route of administration
if both routes are prescribed by the provider (PO <
IV).
09/23/24 04:00
Code Status As Directed
Resuscitation Status: Full Code
09/23/24 04:18
Heparin Protocol- PTT Orders As Directed
PTT per Heparin protocol: -Obtain CBC and baseline PTT - if not already collected.
-Obtain PTT 6 hours from start of infusion. Then, every 6 hours until 2 consecutive
PTT's are therapeutic. Then, PTT Daily.
-With each rate change, obtain PTT every 6 hours until 2 consecutive PTT's are
therapeutic. Then, PTT Daily.
Notify MD As Directed
Notify physician if: PTT is greater than or equal to 200.
09/23/24 04:30
Heparin 77802 Units/250 ml 25,000 units in 250 ml IV PER PROTOCOL
Weight to be used for heparin protocol in kilograms (kg):: 96
Protocol:: Cardiac Tx/Acute Coronary
PTT Goal Range to be used:: PTT 73 to 111 seconds
Order type:: Initial
INITIAL Infusion Dose (UNITS/KG/hr) & then follow protocol:: 15 units/kg/hr
Infusion Dose in UNITS/hr & then follow protocol (UNITS/hr):: 1,450
INFUSION RATE in mL/hr & then follow protocol (mL/hr):: 14.5
PTT less than or equal to 64 seconds:: Increase rate by 200 units/hr (+ 2 mL/hr)
PTT 64.1 to 72.9 seconds:: Increase rate by 100 units/hr (+ 1 mL/hr)
PTT 73 to 111 seconds:: Target Range. No change in rate.
PTT 111.1 to 130.9 seconds:: Decrease rate by 100 units/hr (- 1 mL/hr)
PTT 131 to 199.9 seconds:: HOLD for 1 hr. Then decrease rate by 200 units/hr (- 2 mL/hr)
PTT greater than or equal to 200 seconds:: HOLD for 2 hrs & Notify Provider. Then decrease by 200 units/hr (-
2 mL/hr)
Lab follow-up:: Each change, PTT q6h until 2 consecutive are therapeutic. Then PTT
daily.
09/23/24 04:39
Complete Blood Count/No Diff Urgent
Comment: Obtain baseline before beginning heparin infusion if not already collected
PTT Urgent
Comment: Obtain baseline before beginning heparin infusion if not already collected
09/23/24 06:17
Acetaminophen [Tylenol] 650 mg PO Q4HPRN PRN mild pain
09/23/24 06:17
Cardiothoracic Surgery Consult Routine
Consulting Provider: Talib Alcaraz
Was physician already notified: Yes
Case Management Consult ONCE
Case Management Consult: Discharge Planning
Comment: stroke/tia
DIETARY IP CONSULT Routine
Reason for Consult: stroke/TIA
NEUROLOGY CONSULT Urgent
Consulting Provider: Tapan Gonsalez
Was physician already notified: Yes
Boat Person Urgent
MR Brain Without Contrast Routine
Comment:
Reason For Exam: stroke/TIA
Recent pill cam endoscopy?: No
Have you ever worked with metal? grinding metal? welding?: recent mechanical valve
Activity As Directed
Activity Level: As Tolerated
NIH Stroke Scale As Directed
Directions: Per protocol
Comment: every shift and with any change in condition or mental status
Neurological Checks As Directed
Frequency: q4h
Additional Instructions:: q4h x 24h upon admission to the floor, then qshift & with any change in condition
and mental status
Patient Education As Directed
Type: Stroke education packet
Comment: provide to patient and family
Pneumatic Compression Sleeves As Directed
Type: Knee high
Swallow Screening CVA/TIA ONLY As Directed
Comment: NPO until swallowing screening completed
If patient FAILS swallow screening:: NPO, Speech Therapy consult, Aspiration Precautions
If patient PASSES swallow screening, diet:: Cholesterol Lowering
Above diet order entered?: Yes- passed screening
Vital Signs As Directed
Frequency: Per unit guidelines
Ot Eval And Treat Routine
Pt Eval And Treat Routine
Activity Level: As Tolerated
Speech Therapy Eval & Treat Routine
DX Deep Vein Thrombosis Video Routine
09/23/24 08:00
Carvedilol [Coreg] 25 mg PO BID
Furosemide [Lasix] 40 mg PO DAILY
ISOSORBIDE MONOnitrate ER [Imdur (Extended Release)] 30 mg PO DAILY
Pantoprazole [Protonix] 40 mg PO DAILY
Rosuvastatin Calcium [Crestor] 20 mg PO DAILY
09/23/24 18:00
Warfarin [Coumadin] 7.5 mg PO QPM
09/23/24 22:00
Aspirin Low Dose EC [Aspir Low (Enteric Coated)] 81 mg PO HS
09/24/24 08:29
Basic Metabolic Panel IN AM
Cardiovascular Evaluation IN AM
Complete Blood Count/No Diff IN AM
INR [Prothrombin Time] IN AM
Magnesium IN AM
09/25/24 06:24
Complete Blood Count/No Diff IN AM
Comment: Notify if platelet count is <130,000 or decreases by 50% from baseline
INR [Prothrombin Time] IN AM
09/26/24 06:00
Complete Blood Count/No Diff IN AM
Comment: Notify MD if platelet count is <130,000 or decreases by 50% from baseline
INR [Prothrombin Time] IN AM
09/26/24 11:00
DC Protocol for Telemetry ONCE
09/27/24 06:00
Complete Blood Count/No Diff IN AM
Comment: Notify MD if platelet count is <130,000 or decreases by 50% from baseline
INR [Prothrombin Time] IN AM
09/28/24 06:00
Complete Blood Count/No Diff IN AM
Comment: Notify MD if platelet count is <130,000 or decreases by 50% from baseline
09/29/24 06:00
Complete Blood Count/No Diff IN AM
Comment: Notify MD if platelet count is <130,000 or decreases by 50% from baseline
09/30/24 06:00
Complete Blood Count/No Diff IN AM
Comment: Notify MD if platelet count is <130,000 or decreases by 50% from baseline
10/01/24 06:00
Complete Blood Count/No Diff IN AM
Comment: Notify MD if platelet count is <130,000 or decreases by 50% from baseline
10/02/24 06:00
Complete Blood Count/No Diff IN AM
Comment: Notify MD if platelet count is <130,000 or decreases by 50% from baseline
Abnormal Lab Results
09/22/24 09/22/24
18:54 22:21
RBC 4.07 L 10^6/uL
(4.70-6.10)
Hgb 12.6 L g/dL
(13.0-18.0)
Hct 37.2 L %
(39.0-52.0)
Plt Count 479 H 10^3/uL
(130-400)
PT 19.4 H Sec
(11.4-14.6)
APTT 36.4 H Sec
(23.4-35.0)
Potassium 5.3 H mmol/L
(3.5-5.1)
Creatinine 1.5 H mg/dL
(0.7-1.3)
Glucose 134 H mg/dl
(70-99)
Alkaline Phosphatase 147 H U/L
(38-126)
Troponin I 0.048 H* ng/ml 0.048 H* ng/ml
09/22/24 18:54
09/22/24 18:54
Vital Signs
Initial and Last Documented VS:
Initial Vital Signs
Temp Pulse Resp BP Pulse Ox
98.5 F 89 16 124/92 98
09/22/24 18:44 09/22/24 18:44 09/22/24 18:44 09/22/24 18:44 09/22/24 18:44
Last Documented Vital Signs
Temp Pulse Resp BP Pulse Ox
98.1 F 78 16 131/81 95
09/25/24 03:35 09/25/24 03:35 09/25/24 03:35 09/25/24 03:35 09/25/24 03:35
MDM/Problems Addressed
MDM/Problems Addressed:
48-year-old male with recent aortic valve replacement 09/05, Mechanical on Coumadin, presenting for episode of paresthesias to the left side of his body. Vital signs normal.
On exam, patient is well-appearing, no acute distress and currently asymptomatic. Patient's examination is very reassuring, no focal neurologic deficits, particularly no sensory deficits. Patient reports an episode of paresthesias to the left side
of his body earlier this afternoon when he went from sitting to standing position. Additionally had an episode a week ago, sitting to standing position, resolved after few minutes. Possible positional component to symptoms. However, labs obtained
prior to my assessment and patient is subtherapeutic on his INR. For this reason we will obtain CT and CT angio of his head and neck. Did discuss with Dr. Alcaraz, patient's surgeon, in agreement with plan. Assuming CT within normal limits, advises
increasing Coumadin to 7.5. Patient screening laboratory analysis, did have a troponin checked with slight elevation. Patient denies any chest pain or difficulty breathing. EKG does show some lateral T wave inversions. Did discuss CT surgery,
without present concern
22:30 -repeat EKG and troponin unchanged. Patient again without any cardiac symptoms. Pending CT imaging and ultimate disposition
*Pulse Oximetry
SaO2: 97
Oxygen Mode of Delivery: Room air
Patient hypoxic: no
*EKG
Interpreted by ED Provider?: Yes
EKG Intrepretation Date: 09/22/24
EKG Intrepretation Time: 21:57
Interpretation: abnormal
Comparison EKG: changes noted (09/06/24)
Heart Rate: 78
Rate: normal
Rhythm: sinus
[place]: normal axis
Interval: normal interval
QRS Pattern: normal QRS
Ischemia: T-wave inversion
*Critical Care Note
Total Time (30-74mins, 75-104mins- exclusive of procedures): Not Applicable
ED Attending Note
-
Portions of this chart may have been created with voice recognition software.� Occasional wrong word or��sound alike� substitutions may have occurred due to the inherent limitations of voice recognition software.
Discharge Plan
Departure
Patient Disposition: Admit
Date of Disposition: 09/23/24
Time of Disposition: 01:48
Admit to doctor: Anna
Presentation/result/management discussed w/ accepting MD/DO: Hospitalist
Patient with high blood pressure during this ER visit?: No
Condition: Good
Discharge Problem:
Dissection of vertebral artery, Left sided numbness
Interventions
Interventions:
*Risk Screen - Suicide Last Done: 09/22/24 18:44
*General Assessment Last Done: 09/22/24 18:44
*Neglect/Abuse Screening Last Done: 09/22/24 22:24
*ED COVID-19 Vaccine History Last Done: 09/22/24 22:24
*Nursing Disposition Last Done: 09/23/24 06:09
ED- Neurological Assessment Last Done: 09/22/24 22:24
Discharge Date and Time
Discharge Date/Time: 09/23/24 06:09
[2024-09-22 22:00] VITALS: BP 146/82
[2024-09-22 22:24] VITALS: BMI 27.9
[2024-09-22 22:51] LABS: Troponin I 0.048 ng/ml
[2024-09-22 23:00] VITALS: BP 140/78
[2024-09-23] VITALS (14 sets, daily range): BP systolic 116–158; BP diastolic 70–100; PULSE 82–92; O2SAT 97–98; BMI 28.0
[2024-09-23] MEDS: COUMADIN 2.5 MG PO (03:03)
--- NOTE | 2024-09-23 03:32 | HPS.HSE ---
Addendum entered and electronically signed by Nuzhat Castillo MD 09/23/24 04:22:
case discussed with Dr. Alcaraz who is OK with initiation of heparin gtt
patient's neurological deficits completely resolved at this point
Original Note:
Family Physician
-
Family Physician: Saul Berg
Chief Complaint
-
left body numbness
History of Present Illness
Mr. Iker Piedra is a 48 yo man with hx CAD, essential HTN, HLD, bicuspid aortic valve with moderate and severe AI s/p mechanical aortic valve replacement 09/05/24 now on coumadin presents to the ER with numbness along left side of his body.
Patient called his cardiothoracic surgeon who advised him to come to the ER.
Patient states he was sitting outside. He felt some tingling in his left, left arm and leg. Symptoms resolved when he stood up. Similar episode happened last week. He denies difficulty speaking or swallowing. No weakness.
No fevers/chills. No chest pain or shortness of breath. No nausea/vomiting/diarrhea.
Patient's INR was 2.5 on discharge. Last week it was 1.5 and most recently 1.6. He was told to increase his coumadin.
Medical History
Past Medical History
Past Medical History: Reports Other (CAD, essential HTN, HLD, bicuspid aortic valve with moderate and severe AI s/p aortic valve replacement 09/05/24)
Past Surgical History: Reports Cardiac (mechanical aortic valve replacement 09/05/24)
Social History
Tobacco: Non-smoker
Alcohol: None
Family History
Family History: Not pertinent
Allergies / Home Medications
Allergies reflects when Allergies were last updated in [facility].
Home Medications with original date entered in [facility]
Allergy/Medication List:
Allergies
Allergy/AdvReac Type Severity Reaction Status Date / Time
No Known Allergies Allergy Verified 09/22/24 18:44
Home Medications
acetaminophen 325 mg tablet 650 mg (2 x 325 mg) PO Q4HPRN PRN mild pain 07/08/19
pantoprazole 40 mg tablet,delayed release (Protonix) 40 mg PO DAILY Gastrointestinal Issue 08/17/24
aspirin 81 mg tablet,delayed release 81 mg PO HS Blood Clot Prevention/Tx 08/21/24
cholecalciferol (vitamin D3) 25 mcg (1,000 unit) tablet (Vitamin D3) 25 mcg PO DAILY Supplement 08/21/24
carvedilol 25 mg tablet (Coreg) 25 mg PO BID Heart Failure 09/05/24
furosemide 40 mg tablet 40 mg PO DAILY Fluid Retention/Swelling 09/05/24
rosuvastatin 20 mg tablet 20 mg PO DAILY High cholesterol #90 tabs 09/08/24
isosorbide mononitrate 30 mg tablet,extended release 24 hr 30 mg PO DAILY Blood pressure #0 tabs 09/09/24
warfarin 5 mg tablet (Jantoven) 5 mg PO QPM mechanical heart valve #30 tabs 09/09/24
Review of Systems
-
History Source: Patient
A 12 point ROS was completed and negative except as noted: Yes
Physical Exam
Vital Signs
Vital Signs
Temp Pulse Resp BP Pulse Ox
98.5 F 80 23 141/72 95
09/22/24 18:44 09/23/24 00:30 09/23/24 00:30 09/23/24 00:00 09/23/24 00:30
Physical Exam
General: No Apparent Distress
HEENT: PERRLA
Respiratory: Clear; No Wheezes
Cardiac: S1/S2 and Regular Rhythm
GI: Soft and Non Tender
Musculoskeletal: No Edema
Skin: Warm and Dry; No Rash
Neuro: AO x 3
Psych: Calm
Laboratory Results
-
09/22/24 18:54
09/22/24 18:54
Laboratory Results
PT 19.4 Sec (11.4-14.6) H 09/22/24 18:54
INR 1.61 09/22/24 18:54
APTT 36.4 Sec (23.4-35.0) H 09/22/24 18:54
Total Bilirubin 0.7 mg/dl (0.2-1.3) 09/22/24 18:54
AST 20 U/L (17-59) 09/22/24 18:54
ALT 29 U/L (0-50) 09/22/24 18:54
Alkaline Phosphatase 147 U/L (38-126) H 09/22/24 18:54
Troponin I 0.048 ng/ml H* 09/22/24 22:21
Data Reviewed
-
Diagnostic Radiology: Report Reviewed by me
Lab Data: Labs Reviewed by me
Impression/Plan
-
Mr. Iker Piedra is a 48 yo man with hx CAD, essential HTN, HLD, bicuspid aortic valve with moderate and severe AI s/p mechanical aortic valve replacement 09/05/24 now on coumadin presents to the ER with numbness along left side of his body.
Patient called his cardiothoracic surgeon who advised him to come to the ER.
Triage VS: T 98.5, P 89, RR 16, BP 124/92, SpO2 98%
LABS: WBC 7.5, Hg 12.6, PLT 479, Na 140, K+ 5.3, CO2 29, Cr 1.5, Glucose 134, T. Bili 0.7, AST 20, ALT 29, Alk PHos 147
Trop 0.048 --> 0.048
IN[address] - no acute abnormality; CTA - finding suggest age-indeterminate right vertebral artery dissection
MAR: coumadin 2.5mg (in addition to his prior 5mg)
Left Sided Paraesthesias
-concern for TIA. Patient with recent mechanical aortic valve replacement
-ER team spoke to Dr. Alcaraz who recommended additional 2.5mg coumadin now
-may need to consider Heparin gtt to bridge; will discuss with Dr. Alcaraz and Neurology in the AM
-neuro checks
-MRI
-CONVEYOR SYSTEM DISPATCHER asa
-Neurology consult
status post mechanical aortic valve replacement 09/05/24
-consult Dr. Alcaraz
-continue Coumadin as above, will discuss heparin gtt for briding
Essential HTN
-CONVEYOR SYSTEM DISPATCHER Coreg 25 PO BID
HLD - CONVEYOR SYSTEM DISPATCHER Statin
Hx Dilated Cardiomyopathy with recovered EF
-TTE 08/07/24 with EF 55-60%
-CONVEYOR SYSTEM DISPATCHER Imdur
-CONVEYOR SYSTEM DISPATCHER Lasix
GERD - CONVEYOR SYSTEM DISPATCHER PPI
DVT PPx - coumadin, SCD's
FULL CODE
[2024-09-23 04:48] LABS: Hematocrit 33.7 % (39.0-52.0); Hemoglobin 11.5 g/dL (13.0-18.0); Mean Corp Hgb Conc. 34.1 g/dL (33.0-37.0); Mean Corpuscular Volume 89.4 fL (80.0-94.0); Platelet Count 424 10^3/uL (130-400); Red Cell Dist. Width 13.2 % (11.5-14.5)
[2024-09-23 05:01] LABS: APTT 36.3 Sec (23.4-35.0)
[2024-09-23] MEDS: FLUSH (NSS) 1 FLUSH IV (05:46)
[2024-09-23] MEDS: HEPARIN 25000 UNITS/250 ML IV ×2 (05:46→20:55)
--- NOTE | 2024-09-23 07:31 | W.PN.UPDATE ---
Update Note
Progress Note Update
Patient seen and examined, agree with admission H&P by Dr. Castillo.
48-year-old male with a past medical history of CAD, essential HTN, HLD, bicuspid aortic valve with moderate and severe AI s/p mechanical aortic valve replacement 09/05/24 now on coumadin presents to the ER with transient numbness along left side
of his body, and admitted for suspected TIA. He is usually on Coumadin 5 mg every afternoon, and his INR has been subtherapeutic. He received Coumadin 10 mg overnight. His Coumadin dose has been increased to 7.5 mg every afternoon. Continue
heparin drip to bridge to therapeutic INR with goal of 2.5�3.5. Continue aspirin, statin, follow-up stroke workup with brain MRI, neurology consult.
--- NOTE | 2024-09-23 07:55 | PTCARENOTE ---
Receive pt from ER. Pt alert oriented X3, calm, in no distress. Pt assist X1 to bed, steady gait. Pt oriented to the room, call osorio within reach. Pt has no complaint of numbness, chest pain, or shortness of breath. Pt's NIH=0. VSS (T=98.3, HR=87,
RR=20, XL=089/94, SpO2=97% on RA). Pt on NSR on telemonitor. Hep gtt infusing at 1450 units (14.5mL/hr). Stroke packet given. Will keep monitoring the pt.
--- NOTE | 2024-09-23 08:56 | W.PN.UPDATE ---
Update Note
Progress Note Update
Brief CTS Note
Patient not seen, chart reveiwed. Recent AVR and we were notified of admission.
Patient admitted for neuro monitoring following TIA in the setting of known carotid/vertebral artery disease
Further management per primary team/neurology
Will follow peripherally unless surgical issues arise. Outpatient management of his INR on discharge per cardiology.
[2024-09-23] MEDS: COREG 25 MG PO ×2 (09:35→20:41)
[2024-09-23] MEDS: IMDUR (EXTENDED RELEASE) 30 MG PO (09:36)
[2024-09-23] MEDS: LASIX 40 MG PO (09:36)
[2024-09-23] MEDS: CRESTOR 20 MG PO (09:36)
[2024-09-23] MEDS: PROTONIX 40 MG PO (09:36)
--- NOTE | 2024-09-23 11:07 | PTOTSP ---
Speech therapy
Presentation: Patient's speech and language appeared to be WNL during conversation. Patient was oriented. Patient denied any communicative deficits. Of note, CREDENTIALING SPECIALIST observed patient's right eye tended to drift to the right during conversation. Unsure
if this is baseline or not. Patient denied any visual deficits.
Swallowing Function: CREDENTIALING SPECIALIST observed patient with his meal tray (reg/ thin) in which patient appeared to tolerate regular consistency solids and sips (cup) of thin liquids as he did not exhibit any overt clinical s/sx of aspiration or difficulty with
mastication/ manipulation. Patient denied any dysphagia complaints.
Per RN, patient tolerated medications whole with thin liquids.
recommendations:
1) reg/ thin
2) aspiration precautions
3) medications as tolerated
Plan: CREDENTIALING SPECIALIST will sign off at the time; pleas re-consult if clinically indicated.
[2024-09-23 12:18] LABS: APTT 37.3 Sec (23.4-35.0)
[2024-09-23 12:31] LABS: Potassium 4.7 mmol/L (3.5-5.1)
--- NOTE | 2024-09-23 13:05 | PTCARENOTE ---
Pt's PTT resulted at 37.3 with 1145 assessment. Pt was off IV Heparin for approx 45 minutes with MRI. Made Dr. Coley aware. Dr. Coley wants to continue to follow protocol for his IV Heparin infusion. RN increased Heparin IV per protocol by 200 units/hr.
Now infusing at 1650 units/hr.
[2024-09-23] MEDS: COUMADIN 7.5 MG PO (17:18)
[2024-09-23 19:06] LABS: APTT 69.8 Sec (23.4-35.0)
--- NOTE | 2024-09-23 21:07 | CON.NEURO ---
Neuro Assessment/Plan
Assessment
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
Brain MRI imgs rev'd, no stroke, L midbrain blooming artifact chronic bleed vs cavernoma, spoke with patient I don't believe this requires follow up imaging
TIA x2. as both events were the same, I suspect the vertebral artery dissection is the cause of the TIA, not the heart valve, because embolic would not cause the exact same TIA both times. and that even partial anticoagulation was giving him some
benefit
in either case, treatment remains anticoagulation.
Consultation
Order
Date of Consultation: 09/23/24
Requesting Provider: Nuzhat Castillo
Reason for Consult: TIA
Subjective/Objective
Subjective Data
Date of Service: September 23, 2024
from h&p:
Mr. Iker Piedra is a 48 yo man with hx CAD, essential HTN, HLD, bicuspid aortic valve with moderate and severe AI s/p mechanical aortic valve replacement 09/05/24 now on coumadin presents to the ER with numbness along left side of his body.
Patient called his cardiothoracic surgeon who advised him to come to the ER.
Patient states he was sitting outside. He felt some tingling in his left, left arm and leg. Symptoms resolved when he stood up. Similar episode happened last week. He denies difficulty speaking or swallowing. No weakness.
No fevers/chills. No chest pain or shortness of breath. No nausea/vomiting/diarrhea.
Patient's INR was 2.5 on discharge. Last week it was 1.5 and most recently 1.6. He was told to increase his coumadin.
patient reports his events, he first noticed severe numbness on his left lip, and tingling the rest of his left side which he believes happened at the same time, lasting ~3 minutes.
Objective Data
Vital Signs
Temp Pulse Resp BP Pulse Ox
36.8 C 88 16 128/81 96
09/23/24 19:34 09/23/24 20:41 09/23/24 19:34 09/23/24 20:41 09/23/24 19:34
Lab Results
09/23/24 04:39
09/23/24 12:00
PT 19.4 Sec (11.4-14.6) H 09/22/24 18:54
INR 1.61 09/22/24 18:54
APTT 69.8 Sec (23.4-35.0) H 09/23/24 18:44
Sodium 140 mmol/L (135-145) 09/22/24 18:54
Potassium Cancelled 09/23/24 12:00
BUN 14 mg/dl (9-20) 09/22/24 18:54
Glucose 134 mg/dl (70-99) H 09/22/24 18:54
Calcium 10.1 mg/dl (8.4-10.2) 09/22/24 18:54
Patient Allergies
No Known Allergies Allergy (Verified 09/22/24 18:44)
Physical Exam
-
face symmetric
no pronaor drift
sensation intact to pin
Medications
-
Active Medications
Generic Name Dose Route Start Last Admin
Trade Name Freq PRN Reason Stop Dose Admin
Acetaminophen 650 mg 09/23/24 06:17
Acetaminophen 325 Mg Tablet PO 10/21/24 06:16
Q4HPRN PRN
mild pain
Aspirin 81 mg 09/23/24 22:00
Aspirin 81 Mg (Enteric Coated) Tablet PO 10/21/24 21:59
HS ZEFERINO
Carvedilol 25 mg 09/23/24 08:00 09/23/24 20:41
Carvedilol 25 Mg Tablet PO 10/21/24 07:59 25 mg
BID ZEFERINO Administration
Furosemide 40 mg 09/23/24 08:00 09/23/24 09:36
Furosemide 40 Mg Tablet PO 10/21/24 07:59 40 mg
DAILY ZEFERINO Administration
Heparin Sodium 25,000 units in 250 mls @ 0 mls/hr 09/23/24 04:30 09/23/24 20:55
Heparin 27681 Units/250 Ml IV 250 mls
PER PROTOCOL ZEFERINO Administration
Protocol
Per Protocol
Isosorbide Mononitrate 30 mg 09/23/24 08:00 09/23/24 09:36
Isosorbide Mononitrate 30 Mg Extended Release Tablet PO 10/21/24 07:59 30 mg
DAILY ZEFERINO Administration
Ondansetron HCl 4 mg 09/23/24 12:40
Ondansetron 4 Mg/2 Ml Vial IV 10/21/24 12:39
Q6HPRN PRN
NAUSEA/VOMITING
Pantoprazole Sodium 40 mg 09/23/24 08:00 09/23/24 09:36
Pantoprazole 40 Mg Delayed Release Tablet PO 10/21/24 07:59 40 mg
DAILY ZEFERINO Administration
Rosuvastatin Calcium 20 mg 09/23/24 08:00 09/23/24 09:36
Rosuvastatin (Crestor) 20 Mg Tablet PO 10/21/24 07:59 20 mg
DAILY ZEFERINO Administration
Sodium Chloride 0 flush 09/23/24 05:00 09/23/24 05:46
Sodium Chloride 0.9% (Flush) Syringe IV 10/21/24 04:59 1 flush
PER PROTOCOL ZEFERINO Administration
Warfarin Sodium 7.5 mg 09/23/24 18:00 09/23/24 17:18
Warfarin 7.5 Mg Tablet PO 09/28/24 17:59 7.5 mg
QPM ZEFERINO Administration
Home Medications
�Medication �Instructions �Recorded
acetaminophen 325 mg tablet 650 mg (2 x 325 mg) PO Q4HPRN PRN 07/08/19
mild pain
pantoprazole 40 mg tablet,delayed 40 mg PO DAILY Gastrointestinal 08/17/24
release (Protonix) Issue
aspirin 81 mg tablet,delayed 81 mg PO HS Blood Clot 08/21/24
release Prevention/Tx
cholecalciferol (vitamin D3) 25 25 mcg PO DAILY Supplement 08/21/24
mcg (1,000 unit) tablet (Vitamin
D3)
carvedilol 25 mg tablet (Coreg) 25 mg PO BID Heart Failure 09/05/24
furosemide 40 mg tablet 40 mg PO DAILY Fluid 09/05/24
Retention/Swelling
rosuvastatin 20 mg tablet 20 mg PO DAILY High cholesterol 09/08/24
#90 tabs
isosorbide mononitrate 30 mg 30 mg PO DAILY Blood pressure #0 09/09/24
tablet,extended release 24 hr tabs
warfarin 5 mg tablet (Jantoven) 5 mg PO QPM mechanical heart valve 09/09/24
#30 tabs
[2024-09-23] MEDS: ASPIR LOW (ENTERIC COATED) 81 MG PO (21:12)
[2024-09-24 02:01] LABS: APTT 96.2 Sec (23.4-35.0)
[2024-09-24 03:57] VITALS: BP 105/70
[2024-09-24 07:30] VITALS: BP 117/75
[2024-09-24 07:34] VITALS: BMI 27.5
[2024-09-24 08:42] LABS: Hematocrit 38.6 % (39.0-52.0); Hemoglobin 13.3 g/dL (13.0-18.0); Mean Corp Hgb Conc. 34.5 g/dL (33.0-37.0); Mean Corpuscular Volume 87.9 fL (80.0-94.0); Platelet Count 465 10^3/uL (130-400); Red Cell Dist. Width 13.2 % (11.5-14.5)
[2024-09-24 08:54] LABS: INR 1.82; PT 21.3 Sec (11.4-14.6)
[2024-09-24 08:55] LABS: APTT 88.5 Sec (23.4-35.0)
[2024-09-24] MEDS: COREG 25 MG PO ×2 (08:56→20:25)
[2024-09-24] MEDS: CRESTOR 20 MG PO (08:56)
[2024-09-24] MEDS: IMDUR (EXTENDED RELEASE) 30 MG PO (08:56)
[2024-09-24] MEDS: LASIX 40 MG PO (08:56)
[2024-09-24] MEDS: PROTONIX 40 MG PO (08:56)
--- NOTE | 2024-09-24 09:05 | W.PN.UPDATE ---
Update Note
Progress Note Update
Brief CTS Note:
Patient s/p mechanical AVR on 09/05/24 with current admission for TIA. CTS continuing to follow peripherally.
Goal anticoagulation for patient s/p mechanical AVR as follows:
- INR 2-3 with ASA 81 mg PO daily for 3-months post-op (12/06/24)
- Then, INR 1.5 - 2.0 with ASA 81 mg PO daily for lifetime.
Plan to follow-up with Dr. Alcaraz following discharge in office. Available if additional questions arise.
[2024-09-24 09:49] LABS: Blood Urea Nitrogen 15 mg/dl (9-20); Calcium 9.7 mg/dl (8.4-10.2); Carbon Dioxide 25 mmol/L (22-30); Chloride 104 mmol/L (98-107); Estimated Creatinine Clearance 74 ml/min; Glucose 111 mg/dl (70-99); HDL Cholesterol 34 mg/dl; LDL Cholesterol, Calculated 63 mg/dl; Magnesium 2.1 mg/dl (1.6-2.3); Potassium 4.5 mmol/L (3.5-5.1); Sodium 138 mmol/L (135-145); Very Low Density Lipoprotein 34 mg/dl (0-30); eGFR > 60.00
[2024-09-24 11:08] VITALS: BMI 27.5
--- NOTE | 2024-09-24 11:22 | W.PN.HOSP.TC ---
Today's Communication/Plan
-
cont heparin drip pedning INR>2.0
Assessment / Plan
Assessment / Plan
48yo M with PMHx of HTN, HLD, GERD, On_X aortic mechanical valve placement on 09/05/24 came with 2 episodes of L body numbness, transient, CTA showed age-indeterminate R vertebral artery dissection, that neurologist contributed to the reason for the
symptoms. Treatemtnt with anticoagulation advised. Due to On-X valve -patient needs INR 2.0-3.0 with ASA 81mg until 12/06/24 and then cont Coumadin with ASA targeting INR 1.5-2.0 as per CTX. Patient on heparin bridging due to subtherapeutic INR
A/P:
#TIA
#R vertebral artery dissection
#artifact within the midbrain and left middle cerebral peduncle which may be sequelae of prior microhemorrhage or represent small cavernom
MRI without acute stroke, neurologist did not recommended cavernoma follow up
cont heparin drip bridging to Coumadin, dose increased from 5mg to 7.5mg on 09/23/24
#Subtherapeutic INR
#On-X mechanical AV
CTX follows: see plan for INR above, daily INR
#Essential HTN
#HLD
cont home meds
DVT ppx hep drip
Full code
I have spent at least 59min reviewign chart, test results, communication with consultants and providing direct patient care
Anticipated Discharge: 24 - 48 hours
Subjective/Interval History
-
Date of Service: September 24, 2024
Objective Data
-
Labs:
Laboratory Results
09/24/24 09/24/24
01:40 08:29
WBC 8.2
Hgb 13.3
Hct 38.6 L
Plt Count 465 H
PT 21.3 H
INR 1.82
APTT 96.2 H 88.5 H
Sodium 138
Potassium 4.5
Chloride 104
Carbon Dioxide 25
BUN 15
Creatinine 1.4 H
Glucose 111 H
Calcium 9.7
Vital Signs:
Vital Signs
Temp Pulse Resp BP Pulse Ox
98.0 F 78 18 117/75 97
09/24/24 07:30 09/24/24 08:56 09/24/24 07:30 09/24/24 08:56 09/24/24 08:51
I&O
09/23/24 09/24/24 09/25/24
06:59 06:59 06:59
Intake Total 1567 / 1567
Output Total 500 / 500
Balance 1067 / 1067
Review of Systems
-
History Source: Patient
All other systems: Reviewed and negative
Physical Exam
-
General: No Apparent Distress
HEENT: Normocephalic
Cardiac: Regular Rhythm
GI: Soft, Nontender and Nondistended
Neuro: Awake, Alert, Oriented, AO x 3 and No Motor Deficits
Psych: Calm
[2024-09-24 11:41] VITALS: BP 106/64
[2024-09-24] MEDS: HEPARIN 25000 UNITS/250 ML IV (11:49)
[2024-09-24 15:25] VITALS: BP 118/73
--- NOTE | 2024-09-24 16:24 | PTCARENOTE ---
Pt AAO x3, VENTURA well, ambulatory in room/to BR; chio well. NIHSS 0. VSS. Telemetry:NSR. On room air- pulse ox 97%, no SOB noted. Abd soft/rounded, chio PO well. Voids in BR without difficulty. Heparin drip @ 1750 units/hr (17.5 ml/hr) infusing
via Rt AC site without sx of infiltration. Resting in bed at present, no c/o. Will continue to monitor.
[2024-09-24] MEDS: COUMADIN 7.5 MG PO (17:31)
--- NOTE | 2024-09-24 17:43 | CM ---
Alert awake oriented patient who lives with his parents lives in a 2 story home with 1 step to enter and 9 steps to bed and bathroom. He is independent all activities of daily living.He was offered VN he declined need.Pt said he is starting cardiac
rehab Oct 19 .Observation letter given reviewed and signed on chart.
No VN hx / No SNF history
Pharmacy [facility]
PCP DR Berg
PLAN Home Declined VN
[2024-09-24 19:25] VITALS: BP 130/74
[2024-09-24] MEDS: ASPIR LOW (ENTERIC COATED) 81 MG PO (20:25)
[2024-09-24 23:22] VITALS: BP 120/79
[2024-09-25 03:35] VITALS: BP 131/81
[2024-09-25] MEDS: HEPARIN 25000 UNITS/250 ML IV ×2 (04:18→19:27)
[2024-09-25 06:00] VITALS: BMI 27.4
[2024-09-25 07:00] VITALS: BP 112/78
[2024-09-25 07:54] LABS: Hematocrit 37.9 % (39.0-52.0); Hemoglobin 12.7 g/dL (13.0-18.0); Mean Corp Hgb Conc. 33.5 g/dL (33.0-37.0); Mean Corpuscular Volume 88.8 fL (80.0-94.0); Platelet Count 437 10^3/uL (130-400); Red Cell Dist. Width 13.0 % (11.5-14.5)
[2024-09-25 08:05] LABS: INR 1.95; PT 22.4 Sec (11.4-14.6)
[2024-09-25 08:07] LABS: APTT 107.0 Sec (23.4-35.0)
[2024-09-25] MEDS: COREG 25 MG PO ×2 (08:19→19:59)
[2024-09-25] MEDS: PROTONIX 40 MG PO (08:19)
[2024-09-25] MEDS: IMDUR (EXTENDED RELEASE) 30 MG PO (08:19)
[2024-09-25] MEDS: CRESTOR 20 MG PO (08:20)
[2024-09-25] MEDS: LASIX 40 MG PO (08:20)
--- NOTE | 2024-09-25 11:24 | W.PN.HOSP.TC ---
Addendum entered and electronically signed by Nuzhat Castillo MD 09/29/24 07:12:
Nonischemic myocardial injury
Troponin stable, no concern for ACS
Original Note:
Today's Communication/Plan
-
continue heparin gtt bridge, anticipate DC tomorrow
Assessment / Plan
Assessment / Plan
48yo M with PMHx of HTN, HLD, GERD, On_X aortic mechanical valve placement on 09/05/24 came with 2 episodes of L body numbness, transient, CTA showed age-indeterminate R vertebral artery dissection, that neurologist contributed to the reason for the
symptoms. Treatemtnt with anticoagulation advised. Due to mechanical valve valve -patient needs INR 2.0-3.0 with ASA 81mg until 12/06/24 and then cont Coumadin with ASA targeting INR 1.5-2.0 as per CTX. Patient on heparin bridging due to
subtherapeutic INR
Head/Neck CTA
IMPRESSION:
CT Brain: No acute intracranial process. Specifically, no evidence of acute hemorrhage.
CTA Head: No significant arterial stenosis. No aneurysm.
CTA Neck: The right vertebral artery is diminutive with proximal occlusion and reconstitution of the mid V2 segment. Left dominant vertebral artery. There is moderate stenosis within the distal left common carotid artery secondary to noncalcified
atherosclerotic plaque. Mixed density atherosclerotic plaque of the bilateral carotid bifurcations without significant stenosis.
MRI
IMPRESSION:
IMPRESSION:
No acute intracranial abnormality noted.
There are small foci of blooming artifact within the midbrain and left middle cerebral peduncle which may be sequelae of prior microhemorrhage or represent small cavernoma. Consider follow-up MRI brain to ensure stability.
A/P:
#TIA
#R vertebral artery dissection
#artifact within the midbrain and left middle cerebral peduncle which may be sequelae of prior microhemorrhage or represent small cavernoma
MRI without acute stroke, neurologist did not recommended cavernoma follow up
cont heparin drip bridging to Coumadin, dose increased from 5mg to 7.5mg on 09/23/24
INR 1.95 this AM - anticipate DC tomorrow
#Subtherapeutic INR
#s/p mechanical AV valve
CTX follows: see plan for INR above, daily INR
#Essential HTN
#HLD
cont home meds
DVT ppx hep drip
Full code
51 minutes spent on patient care
Anticipated Discharge: 24 - 48 hours
Subjective/Interval History
-
Date of Service: September 25, 2024
no active complaints
willing to stay one more night for briding
Objective Data
-
Labs:
Laboratory Results
09/25/24
06:24
WBC 8.6
Hgb 12.7 L
Hct 37.9 L
Plt Count 437 H
PT 22.4 H
INR 1.95
APTT 107.0 H
Vital Signs:
Vital Signs
Temp Pulse Resp BP Pulse Ox
98.2 F 88 16 112/78 95
09/25/24 07:00 09/25/24 08:19 09/25/24 07:00 09/25/24 08:19 09/25/24 07:00
I&O
09/24/24 09/25/24 09/26/24
06:59 06:59 06:59
Intake Total 1567 / 1567 1650 / 1650
Output Total 500 / 500
Balance 1067 / 1067 1650 / 1650
Review of Systems
-
History Source: Patient
All other systems: Reviewed and negative
Physical Exam
-
General: No Apparent Distress
HEENT: PERRLA
Respiratory: Clear to Auscultation; Negative Wheezes
Cardiac: Regular Rhythm and S1/S2
GI: Soft and Nontender
Musculoskeletal: No Edema
Skin: Warm and Dry; Negative Rash
Neuro: AO x 3
Psych: Calm
Data Reviewed
-
Diagnostic Radiology: Report Reviewed by me
Labs: Labs Reviewed by me
[2024-09-25 11:32] VITALS: BP 123/81
[2024-09-25 15:36] VITALS: BP 131/76
[2024-09-25] MEDS: COUMADIN 7.5 MG PO (17:59)
[2024-09-25 19:47] VITALS: BP 112/78
[2024-09-25] MEDS: ASPIR LOW (ENTERIC COATED) 81 MG PO (19:59)
[2024-09-25] MEDS: TYLENOL 650 MG PO (21:14)
[2024-09-25 23:23] VITALS: BP 112/79
[2024-09-26 03:16] VITALS: BP 143/89
[2024-09-26 05:36] VITALS: BMI 27.2
[2024-09-26 07:14] LABS: Hematocrit 38.9 % (39.0-52.0); Hemoglobin 13.3 g/dL (13.0-18.0); Mean Corp Hgb Conc. 34.2 g/dL (33.0-37.0); Mean Corpuscular Volume 87.8 fL (80.0-94.0); Platelet Count 422 10^3/uL (130-400); Red Cell Dist. Width 13.0 % (11.5-14.5)
[2024-09-26 07:25] LABS: INR 2.17; PT 24.3 Sec (11.4-14.6)
[2024-09-26 07:30] VITALS: BP 131/83
[2024-09-26 07:43] LABS: Blood Urea Nitrogen 17 mg/dl (9-20); Calcium 9.5 mg/dl (8.4-10.2); Carbon Dioxide 25 mmol/L (22-30); Chloride 104 mmol/L (98-107); Estimated Creatinine Clearance 79 ml/min; Glucose 98 mg/dl (70-99); Potassium 4.3 mmol/L (3.5-5.1); Sodium 136 mmol/L (135-145); eGFR > 60.00
[2024-09-26 08:07] LABS: APTT > 200 Sec (23.4-35.0)
[2024-09-26] MEDS: PROTONIX 40 MG PO (08:16)
[2024-09-26] MEDS: LASIX 40 MG PO (08:16)
[2024-09-26] MEDS: CRESTOR 20 MG PO (08:16)
[2024-09-26] MEDS: COREG 25 MG PO (08:16)
[2024-09-26] MEDS: IMDUR (EXTENDED RELEASE) 30 MG PO (08:16)
--- NOTE | 2024-09-26 10:36 | W.PN.HOSP.TC ---
Today's Communication/Plan
-
Ok for DC today
Assessment / Plan
Assessment / Plan
48yo M with PMHx of HTN, HLD, GERD, On_X aortic mechanical valve placement on 09/05/24 came with 2 episodes of L body numbness, transient, CTA showed age-indeterminate R vertebral artery dissection, that neurologist contributed to the reason for the
symptoms. Treatemtnt with anticoagulation advised. Due to mechanical valve valve -patient needs INR 2.0-3.0 with ASA 81mg until 12/06/24 and then cont Coumadin with ASA targeting INR 1.5-2.0 as per CTX. Patient on heparin bridging due to
subtherapeutic INR
Head/Neck CTA
IMPRESSION:
CT Brain: No acute intracranial process. Specifically, no evidence of acute hemorrhage.
CTA Head: No significant arterial stenosis. No aneurysm.
CTA Neck: The right vertebral artery is diminutive with proximal occlusion and reconstitution of the mid V2 segment. Left dominant vertebral artery. There is moderate stenosis within the distal left common carotid artery secondary to noncalcified
atherosclerotic plaque. Mixed density atherosclerotic plaque of the bilateral carotid bifurcations without significant stenosis.
MRI
IMPRESSION:
IMPRESSION:
No acute intracranial abnormality noted.
There are small foci of blooming artifact within the midbrain and left middle cerebral peduncle which may be sequelae of prior microhemorrhage or represent small cavernoma. Consider follow-up MRI brain to ensure stability.
A/P:
#TIA
#R vertebral artery dissection
#artifact within the midbrain and left middle cerebral peduncle which may be sequelae of prior microhemorrhage or represent small cavernoma
MRI without acute stroke, neurologist did not recommended cavernoma follow up
s/p Heparin gtt bridge; INR 2.17 this AM. OK to stop heparin and DC on higher dose coumadin 7.5mg PO qhs
patient given script to obtain INR
#Subtherapeutic INR
#s/p mechanical AV valve
CTX follows: see plan for INR above, daily INR
#Essential HTN
#HLD
cont home meds
DVT ppx hep drip
Full code
51 minutes spent on patient care
Anticipated Discharge: Today
Subjective/Interval History
-
Date of Service: September 26, 2024
feeling well
feels ready to go home
Objective Data
-
Labs:
Laboratory Results
09/26/24
06:10
WBC 8.3
Hgb 13.3
Hct 38.9 L
Plt Count 422 H
PT 24.3 H
INR 2.17
APTT > 200 H*
Sodium 136
Potassium 4.3
Chloride 104
Carbon Dioxide 25
BUN 17
Creatinine 1.3
Glucose 98
Calcium 9.5
Vital Signs:
Vital Signs
Temp Pulse Resp BP Pulse Ox
97.5 F 77 18 131/83 95
09/26/24 07:30 09/26/24 08:16 09/26/24 07:30 09/26/24 08:16 09/26/24 09:45
I&O
09/25/24 09/26/24 09/27/24
06:59 06:59 06:59
Intake Total 1650 / 1650 480 / 480
Balance 1650 / 1650 480 / 480
Review of Systems
-
History Source: Patient
All other systems: Reviewed and negative
Physical Exam
-
General: No Apparent Distress
HEENT: PERRLA
Respiratory: Clear to Auscultation; Negative Wheezes
Cardiac: Regular Rhythm, S1/S2 and Murmur
GI: Soft and Nontender
Musculoskeletal: No Edema
Skin: Warm and Dry; Negative Rash
Neuro: AO x 3
Psych: Calm
Data Reviewed
-
Diagnostic Radiology: Report Reviewed by me
Labs: Labs Reviewed by me
--- NOTE | 2024-09-26 10:43 | W.DS.TRANS ---
DC Summary - Back End Web Developer
-
Discharge Instructions:
Sleep Apnea Risk Low
Discharge Diagnosis/Procedures vertebral artery dissection and transient
ischemic attack; subtherapeutic INR
Diet Regular
Activity As tolerated
Driving Restrictions As prior to admission
Bathing Restrictions None
Blood Work INR on Tuesday09/28/24
Instructions:
Stand-Alone Forms:
Changes to Home Medications: Yes
Discharge Medications:
DC Medications w/original date entered in [facility]
acetaminophen 325 mg tablet 650 mg (2 x 325 mg) PO Q4HPRN PRN mild pain 07/08/19
pantoprazole 40 mg tablet,delayed release (Protonix) 40 mg PO DAILY Gastrointestinal Issue 08/17/24
aspirin 81 mg tablet,delayed release 81 mg PO HS Blood Clot Prevention/Tx 08/21/24
cholecalciferol (vitamin D3) 25 mcg (1,000 unit) tablet (Vitamin D3) 25 mcg PO DAILY Supplement 08/21/24
carvedilol 25 mg tablet (Coreg) 25 mg PO BID Heart Failure 09/05/24
furosemide 40 mg tablet 40 mg PO DAILY Fluid Retention/Swelling 09/05/24
rosuvastatin 20 mg tablet 20 mg PO DAILY High cholesterol #90 tabs 09/08/24
isosorbide mononitrate 30 mg tablet,extended release 24 hr 30 mg PO DAILY Blood pressure #0 tabs 09/09/24
warfarin 7.5 mg tablet (Jantoven) 7.5 mg PO QPM #0 tabs 09/26/24
Home Medication Changes
Increase in coumadin dosing to 7.5mg
Pending Results: No
[2024-09-26 11:07] VITALS: BP 122/74
--- NOTE | 2024-09-26 14:20 | W.DCSUMMARY ---
Discharge Summary
Discharge Data
Date of Admission: 09/25/24
Date of Discharge: 09/26/24
-
Pending Results: No
Hospital Course
Discharging Physician : Dr. Nuzhat Castillo
Disposition : Home
Primary care physician : Dr. Saul Berg
Principal Discharge diagnosis : Vertebral artery dissection, TIA, subtherapeutic INR
Hospital Course :
Mr. Iker Piedra is a 48 yo man with hx CAD, essential HTN, HLD, bicuspid aortic valve with moderate and severe AI s/p mechanical aortic valve replacement 09/05/24 now on coumadin presents to the ER with numbness along left side of his body that
lasted for several minutes. He had similar episode a week prior. Patient called his cardiothoracic surgeon who advised him to come to the ER.
Triage vitals stable. Labs without leukocytosis, Cr 1.5, liver enzymes WNL. INR 1.61. Head CT without acute abnormality; CTA with findings suggesting age-indeterminate right vertebral artery dissection. Given subetherapeutic INR and resolution
of neurological deficits, he was started on a IV heparin gtt to bridge to therapeutic INR. Patient was admitted to medicine with Neurology and cardiothoracic surgery consulting.
MRI obtained without intracranial abnormality. Per Neurology, left-sided numbness resultant from vertebral artery dissection, because same symptoms occurred both times.
Per CTS: Goal anticoagulation for patient s/p mechanical AVR as follows:
- INR 2-3 with ASA 81 mg PO daily for 3-months post-op (12/06/24)
- Then, INR 1.5 - 2.0 with ASA 81 mg PO daily for lifetime.
Patient's INR was 2.17 on day of discharge. His INTERNAL AUDIT MANAGER Coumadin dosing is increased from 5mg to 7.5mg. He will get a repeat INR in 2 days and follow up closely with outpatient providers.
Time spent on discharge was 45 minutes.
Important imaging findings :
Head/Neck CTA
IMPRESSION:
CT Brain: No acute intracranial process. Specifically, no evidence of acute hemorrhage.
CTA Head: No significant arterial stenosis. No aneurysm.
CTA Neck: The right vertebral artery is diminutive with proximal occlusion and reconstitution of the mid V2 segment. Left dominant vertebral artery. There is moderate stenosis within the distal left common carotid artery secondary to noncalcified
atherosclerotic plaque. Mixed density atherosclerotic plaque of the bilateral carotid bifurcations without significant stenosis.
MRI
IMPRESSION:
IMPRESSION:
No acute intracranial abnormality noted.
There are small foci of blooming artifact within the midbrain and left middle cerebral peduncle which may be sequelae of prior microhemorrhage or represent small cavernoma. Consider follow-up MRI brain to ensure stability.
Procedure findings :
Discharge Plan
-
Patient Disposition: Home (Routine Discharge)
Discharge Diagnosis/Procedures: vertebral artery dissection and transient ischemic attack; subtherapeutic INR
Diet: Regular
Activity: As tolerated
Driving Restrictions: As prior to admission
Bathing Restrictions: None
Blood Work: INR on Tuesday09/28/24
Referrals:
Saul Berg DO [Family Provider, [facility]] - in less than 1 week
Additional Discharge Medication Instructions: Follow up with Dr. Alcaraz and Cardiology clinic as scheduled
Your Coumadin dosing is increased from 5 to 7.5mg to be taken in evenings. This may be adjusted by outpatient providers based on INR results on Tuesday
Prescriptions:
New
warfarin [Jantoven] 7.5 mg Tablet
7.5 mg PO QPM Qty: 0 0RF
Continued
acetaminophen 325 MG tablet
650 mg PO Q4HPRN PRN (Reason: mild pain) 0RF
pantoprazole [Protonix] 40 mg Tablet,Delayed Release (Dr/Ec)
40 mg PO DAILY
aspirin 81 MG tablet,delayed release (DR/EC)
81 mg PO HS
cholecalciferol (vitamin D3) [Vitamin D3] 25 mcg (1,000 unit) Tablet
25 mcg PO DAILY
furosemide 40 MG tablet
40 mg PO DAILY
carvedilol [Coreg] 25 MG tablet
25 mg PO BID
rosuvastatin 20 mg tablet
20 mg PO DAILY Qty: 90 5RF
isosorbide mononitrate 30 MG tablet extended release 24 hr
30 mg PO DAILY Qty: 0 0RF
Discontinued
warfarin [Jantoven] 5 mg tablet
5 mg PO QPM Qty: 30 2RF
Discharge Orders:
Discharge Patient (As Directed); Ordered 09/26/24
Ordered By: Nuzhat Castillo
Discharge Date and Time
Discharge Date/Time: 09/26/24 11:37
Print Language: CYMRAES
--- NOTE | 2024-09-27 10:38 | PN.CDI ---
CDI
- -
CDI:
Physician Documentation Request
Admit Date: 09/25/24 11:42
Dear Doctor Anna,
Patient admitted with TIA and right vertebral artery dissection.
Troponin results:
Laboratory Tests
09/22/24 09/22/24
18:54 22:21
Troponin I 0.048 H* 0.048 H*
Could you please provide a diagnosis that supports the above lab abnormalities and additional evaluation, monitoring:
Nonischemic myocardial injury
Type II AK - demand ischemia
Other
Use of terms such as suspected, likely, concern for, or probable (associated with a specific diagnosis that is being evaluated, monitored, or treated as if it exists) are acceptable and can be coded in the inpatient setting, when documented at the
time of discharge.
Thank you,
Cyndy May RN, BSN
CDI Specialist
tiger text
Please use your independent medical judgment in providing your response.
== END 2024-09-26 11:37 | disposition home or self-care (01) | DRG 300 ==
LOC: 4 EAST ACU 11:42
PROVIDERS: Family Medicine; Radiology Neuroradiology; ADMITTING PHYSICIAN Student in an Organized Health Care Education/Training Program; CONSULT PHYSICIAN Psychiatry & Neurology Clinical Neurophysiology; EMERGENCY PHYSICIAN Student in an Organized Health Care Education/Training Program; FAMILY PHYSICIAN Family Medicine
DX: I77.74 Dissection of vertebral artery (principal); G45.9 Transient cerebral ischemic attack, unspecified; I5A Non-ischemic myocardial injury (non-traumatic); F17.200 Nicotine dependence, unspecified, uncomplicated; I10 Essential (primary) hypertension; E78.5 Hyperlipidemia, unspecified
CPT/HCPCS: 70496; 70498; 70551; 80048; 80053; 80061; 83735; 84132; 84484; 85025; 85027; 85610; 85730; 92610; 93005; 93306; 96365; 97161; 97165; 99285; Q9967

== ENCOUNTER → 2024-10-01 12:26 | Outpatient (REF) | payer OTHER, SELFPAY ==
[2024-10-01 13:20] LABS: INR 3.07; PT 31.6 Sec (11.4-14.6)
== END ==
LOC: REG 12:26
PROVIDERS: ATTENDING PHYSICIAN Internal Medicine Cardiovascular Disease; FAMILY PHYSICIAN Family Medicine
DX: Z95.2 Presence of prosthetic heart valve (principal)
CPT/HCPCS: 36415; 85610

== ENCOUNTER 2024-11-16 14:06 | Outpatient (RCR) | payer OTHER, SELFPAY | END 2024-11-16 23:59 | disposition home or self-care (01) | LOC: CRHB 14:06 | PROVIDERS: ATTENDING PHYSICIAN Internal Medicine Cardiovascular Disease | DX: Z95.4 Presence of other heart-valve replacement (principal) | CPT/HCPCS: 93797; 93798 ==

== ENCOUNTER 2024-11-30 11:53 | Outpatient (RCR) | payer OTHER, SELFPAY ==
[2024-11-22 09:59] LABS: HDL Cholesterol 30 mg/dl; LDL Cholesterol, Calculated 58 mg/dl; Very Low Density Lipoprotein 54 mg/dl (0-30)
== END 2024-12-03 07:46 | disposition home or self-care (01) ==
LOC: CRHB 11:53
PROVIDERS: ATTENDING PHYSICIAN Internal Medicine Cardiovascular Disease; FAMILY PHYSICIAN Family Medicine
DX: Z95.4 Presence of other heart-valve replacement (principal)
CPT/HCPCS: 36415; 80061; 93797; 93798

== ENCOUNTER → 2025-02-11 07:18 | Outpatient (REF) | payer OTHER, SELFPAY | LOC: HWRCS 07:18 | PROVIDERS: ATTENDING PHYSICIAN Internal Medicine Cardiovascular Disease; FAMILY PHYSICIAN Family Medicine | DX: I42.0 Dilated cardiomyopathy (principal) | CPT/HCPCS: 93306 ==